=== PATIENT | female | born 1980 | race Caucasian/White ===

== ENCOUNTER 2019-07-16 09:08 | Outpatient (CLI) | payer OTHER, SELFPAY ==
--- NOTE | ~2019-07-16 | MM_ITS ---
EXAMINATION: MM screening ranjit BI w chato HISTORY: Screening mammogram TECHNIQUE: Craniocaudal and mediolateral oblique 3-D tomosynthesis images were obtained and synthetic 2-D images were generated. CAD analysis was submitted and interpreted. COMPARISON: No prior mammogram is available for comparison at this institution. BREAST PARENCHYMAL COMPOSITION: There are scattered areas of fibroglandular density. FINDINGS: RIGHT BREAST: There is no evidence of suspicious mass, calcification, or architectural distortion to suggest malignancy. LEFT BREAST: There is focal asymmetry in the upper outer quadrant of the middle third of the breast. IMPRESSION: 1. Focal asymmetry of the left breast which may represent the patient's baseline however no compariso n is currently available. 2. Comparison with prior mammograms is necessary. BI-RADS Category 0: Incomplete: Needs comparison with prior mammograms. Reviewed, dictated and finalized at location A. IMPRESSION: 1. Focal asymmetry of the left breast which may represent the patient's baselin e however no comparison is currently available. 2. Comparison with prior mammograms is necessary. BI-RADS Category 0: Incomplete: Needs comparison with prior mammograms.
== END 2019-07-16 09:09 | disposition home or self-care (01) ==
LOC: ANHIMG 09:11
PROVIDERS: PCP Physician Assistant; Visit Provider Obstetrics & Gynecology
DX: Z12.31 Encounter for screening mammogram for malignant neoplasm of breast (principal); R92.8 Other abnormal and inconclusive findings on diagnostic imaging of breast
CPT/HCPCS: 77063; 77067

== ENCOUNTER 2021-01-22 14:17 | Outpatient (CLI) | payer OTHER, SELFPAY ==
--- NOTE | ~2021-01-22 | MM_ITS ---
EXAMINATION: MM screening ranjit BI w chato HISTORY: Screening TECHNIQUE: Craniocaudal and mediolateral oblique 3-D tomosynthesis images were obtained and synthetic 2-D images were generated. CAD analysis was submitted and interpreted. COMPARISON: Comparison to multiple prior studies sequentially, with oldest reviewed study dated 01/21. BREAST PARENCHYMAL COMPOSITION: Breast composed of scattered areas of fibroglandular density FINDINGS: There is no evidence of suspicious mass, calcification, or architectural distortion to sugg est malignancy in either breast. There has been no suspicious interval change. IMPRESSION: 1. No mammographic evidence of malignancy. 2. Recommend routine screening mammography in one year. BI-RADS Category 1: Negative Reviewed, dictated and finalized at location A.
== END 2021-01-22 14:18 | disposition home or self-care (01) ==
LOC: ANHIMG 14:20
PROVIDERS: PCP Physician Assistant; Visit Provider Obstetrics & Gynecology
DX: Z12.31 Encounter for screening mammogram for malignant neoplasm of breast (principal)
CPT/HCPCS: 77063; 77067

== ENCOUNTER 2021-02-28 11:42 | Outpatient (CLI) | payer OTHER, SELFPAY ==
--- NOTE | ~2021-02-28 | XR_ITS ---
EXAMINATION:XR cervical spine 4-5V DATE: 02/28/2021 12:26 INDICATION: Bilateral upper extremity pain TECHNIQUE: AP, lateral, and bilateral oblique views of the cervical spine are provided. COMPARISON: None FINDINGS: There are 2 mm of retrolisthesis of C3 on C4. There is straightening of the cervical spine. The odontoid is intact. No fracture is identified. Vertebral body heights and disk spaces are normal . Prevertebral soft tissues are normal. Small degenerative osteophytes project from the anterior endp lates of multiple vertebral bodies. IMPRESSION: 1. Mild cervical spondylosis without acute findings. Reviewed, dictated and finalized at location A.
== END 2021-02-28 11:43 | disposition home or self-care (01) ==
PROVIDERS: PCP Physician Assistant; Visit Provider Physician Assistant
DX: M47.812 Spondylosis without myelopathy or radiculopathy, cervical region (principal)
CPT/HCPCS: 72050

== ENCOUNTER 2021-10-09 12:59 | Outpatient (CLI) | payer OTHER, SELFPAY ==
--- NOTE | ~2021-10-09 | XR_ITS ---
EXAMINATION: XR_CERV2-3V_CR DATE: 10/09/2021 13:28 INDICATION: Prolapsed cervical intervertebral disc. TECHNIQUE: 3 views of cervical spine were obtained. COMPARISON: Cervical spine radiographs 02/28/2021 FINDINGS: There is hypolordosis of cervical spine. There is 2 mm retrolisthesis of C3 on C4. Vertebra l body heights are normal. There is mildly decreased disc height at C5-C6. The facet joints are unrem arkable. No central canal stenosis or prevertebral soft tissue swelling. IMPRESSION: 1. Mild cervical spondylosis. Reviewed, dictated and finalized at location A.
== END 2021-10-09 13:00 | disposition home or self-care (01) ==
LOC: ANHIMG 13:05
PROVIDERS: PCP Physician Assistant; Visit Provider Physician Assistant
DX: M50.20 Other cervical disc displacement, unspecified cervical region (principal); M47.892 Other spondylosis, cervical region
CPT/HCPCS: 72040

== ENCOUNTER 2022-01-23 16:22 | Emergency (ER) | payer OTHER, SELFPAY ==
--- NOTE | ~2022-01-23 | XR_ITS ---
EXAMINATION: XR soft tissue neck DATE: 01/23/2022 20:01 INDICATION: Foreign body sensation. TECHNIQUE: 2 views of the neck soft tissues were obtained. COMPARISON: None. FINDINGS: The adenoids, palatine tonsils, prevertebral soft tissues, epiglottis, and glottis are norm al. No radiopaque foreign body. IMPRESSION: 1. Normal neck soft tissues. Reviewed, dictated and finalized at location A.
[2022-01-23 16:45] VITALS: BP 138/81; PULSE 83; RESP 18; TEMP 36.8; O2SAT 98
--- NOTE | 2022-01-23 18:01 | ED.SKABFB ---
HPI - Skin/Abscess/Foreign Bdy General Chief complaint: Skin/Abscess/Foreign Body Stated complaint: RASH, FACE TINGLY Time Seen by Provider: 01/23/22 17:43 History of Present Illness HPI narrative: Patient is a 41-year-old female here for evaluation of a pruritic rash to her arms and legs over the past 4 days. Patient was seen in urgent care facility and was given a shot of a steroid and also p.o. prednisone to take at home, she finished her dose today but states that the rash has not improved and now she has some tingling sensation in her face. She denies any difficulty breathing or throat tightness. She has not attempted any Benadryl at home. Nobody at home has a similar rash. Related Data Allergies Allergy/AdvReac Type Severity Reaction Status Date / Time No Known Allergies Allergy Verified 01/23/22 19:48 Review of Systems Review of Systems: Gen.: Denies fevers or chills Eyes: Denies eye pain or visual change ENT: Denies congestion Respiratory: Denies shortness of breath or cough CV: Denies chest pain or palpitations GI: Denies abdominal pain nausea, emesis or diarrhea denies burning, urgency, frequency or hematuria Musculoskeletal: Denies back pain or muscle pain Neuro: Denies numbness, tingling, weakness or focal weakness Skin: Reports rash Except as documented, all other systems reviewed and negative Exam Narrative: APPEARANCE: Well appearing, no pain in distress, well-nourished. Head: Normocephalic and atraumatic. EYES: PERRLA/EOMI, conjunctivae clear NOSE: No nasal drainage EARS: External ear normal in appearance THROAT: No tongue swelling. oropharynx is clear. Mucous membranes are moist. NECK: Supple. No adenopathy, no masses. RESPIRATORY: Speaking in full sentences. Airway patent, respirations nonlabored. Clear to auscultation bilaterally, no rales, rhonchi, wheezing. CARDIOVASCULAR: Regular rate and rhythm without murmurs, rubs, or gallops. ABDOMINAL: Normoactive bowel sounds. Soft, nontender, nondistended. No rebound tenderness or guarding. MUSCULOSKELETAL: Extremities are warm and well-perfused. Moves all extremities well. No edema. NEURO: Normal speech. No focal neurologic deficits. SKIN: Patient has pinpoint papules to bilateral upper extremities, coalesced at the webs of the fingers with linear burrows extending up to the forearms. No rash to face. PSYCHIATRIC: Normal affect/mood. Course Vital Signs Vital signs: Vital Signs Temperature 98.3 F 01/23/22 16:45 Pulse Rate 83 01/23/22 16:45 Respiratory Rate 18 01/23/22 16:45 Blood Pressure 138/81 01/23/22 16:45 Pulse Oximetry 98 01/23/22 16:45 Oxygen Delivery Room Air 01/23/22 16:45 Temperature 98.3 F 01/23/22 16:45 Pulse Rate 72 01/23/22 21:12 Respiratory Rate 18 01/23/22 21:12 Blood Pressure 138/81 01/23/22 16:45 Pulse Oximetry 97 01/23/22 21:12 Oxygen Delivery Room Air 01/23/22 16:45 MDM - Skin/Abscess/Foreign Bdy MDM Narrative Medical decision making narrative: 41-year-old female here for evaluation of pruritic rash to her bilateral upper extremities for the past several days. On exam she has pruritic papules to the webs of her fingers in addition to some linear burrows consistent with scabies. Patient be treated with ivermectin and encouraged Benadryl and Pepcid for symptom control. Additionally complaining of some tingling to her tongue but no respiratory distress, no hypoxia or hypotension consistent with anaphylaxis, clear lung sounds throughout. Soft tissue x-ray of the neck shows no foreign body, electrolytes are within normal limits. Patient will be discharged home with EpiPen should she start to develop respiratory symptoms. She voiced understanding and will follow up with her PCP next week. Lab Data Result diagrams: 01/23/22 20:25 Labs: Lab Results 01/23/22 Range/Units 20:25 Sodium 139 (137-145) mmol/L Potassium 4.0 (3.4-5.0) mmol/L Chloride 101 (98-107
[2022-01-23] MEDS: diphenhydrAMINE HCl CAP 25 MG CAPSULE 50 MG PO (18:55)
[2022-01-23] MEDS: predniSONE 20 MG TABLET 40 MG PO (18:56)
[2022-01-23] MEDS: FAMOTIDINE 20 MG TABLET 40 MG PO (18:56)
[2022-01-23 20:52] LABS: Alanine Aminotransferase 38 U/L (6-35); Albumin Level 4.7 g/dL (3.5-5.1); Alkaline Phosphatase 99 U/L (38-126); Anion Gap 13 mmol/L (8-16); Aspartate Amino Transferase 34 U/L (14-36); Bilirubin,Total 0.5 mg/dL (0.2-1.3); Blood Urea Nitrogen 8 mg/dL (7-17); Calcium 8.8 mg/dL (8.4-10.2); Carbon Dioxide 25 mmol/L (22-30); Chloride 101 mmol/L (98-107); Estimated CRCL calculation 93 ml/min; Estimated Glomerular Filt Rate > 60; Glucose 111 mg/dL (65-110); Magnesium 2.1 mg/dL (1.6-2.3); Phosphorus 3.9 mg/dL (2.5-4.5); Sodium 139 mmol/L (137-145)
[2022-01-23 21:12] VITALS: PULSE 72; RESP 18; O2SAT 97
== END 2022-01-23 21:11 | disposition home or self-care (01) ==
PROVIDERS: Physician Assistant; Emergency Provider Emergency Medicine; PCP Physician Assistant
DX: B86 Scabies (principal)
CPT/HCPCS: 36415; 70360; 80053; 83735; 84100; 99283; A9270; J7512

== ENCOUNTER 2023-02-02 14:18 | Outpatient (CLI) | payer OTHER, SELFPAY ==
--- NOTE | ~2023-02-02 | MM_ITS ---
EXAMINATION: MM screening ranjit BI w chato HISTORY: Screening mammogram TECHNIQUE: Craniocaudal and mediolateral oblique 3-D tomosynthesis images were obtained and synthetic 2-D images were generated. CAD analysis was submitted and interpreted. COMPARISON: 01/22/2021, 07/16/2019 bilateral screening mammogram examinations BREAST PARENCHYMAL COMPOSITION: There are scattered areas of fibroglandular density. FINDINGS: There is no evidence of suspicious mass, calcification, or architectural distortion to sugg est malignancy in either breast. There has been no suspicious interval change. IMPRESSION: 1. No mammographic evidence of malignancy. 2. Recommend routine screening mammography in one year. BI-RADS Category 1: Negative Reviewed, dictated and finalized at location A.
== END 2023-02-02 14:19 | disposition home or self-care (01) ==
LOC: ANHIMG 14:22
PROVIDERS: PCP Physician Assistant; Visit Provider Emergency Medicine
DX: Z12.31 Encounter for screening mammogram for malignant neoplasm of breast (principal)
CPT/HCPCS: 77063; 77067

== ENCOUNTER 2024-08-04 15:07 | Outpatient (CLI) | payer OTHER, SELFPAY ==
--- NOTE | ~2024-08-04 | US_ITS ---
EXAMINATION: US venous doppler E DATE: 08/04/2024 15:39 INDICATION: Left arm pain TECHNIQUE: Calvo scale images with and without compression and Doppler images of the left upper extrem ity veins were obtained. COMPARISON: None. FINDINGS: The left internal jugular vein, subclavian vein, axillary vein, brachial veins, basilic vein, cephali c vein, radial vein, and ulnar vein are patent. IMPRESSION: 1. Patent left upper extremity veins. No evidence of deep venous thrombosis. Reviewed, dictated and finalized at location A.
--- OUTSIDE RECORDS SUMMARY | 2024-08-04 16:09 | XMS_ITS | Referral Summary ---
Author Organization [facility] Address [address] [place] [address] Care Team Providers Care Kardex Clerk Name Role Phone Erma Rueda MD Primary Care Provider [phone] Allergies Active Allergy Reactions Criticality Noted Date Comments Morphine Medications baclofen (LIORESAL) 10 mg tablet baclofen 10 mg tablet TAKE 1 TABLET BY MOUTH THREE TIMES DAILY NEEDED 12/22/2016 Active naproxen (NAPROSYN) 500 mg tablet naproxen 500 mg tablet TAKE 1 TABLET BY MOUTH TWICE DAILY 12/22/2016 Active solifenacin (VESIcare) 10 mg tabletIndicatio ns:Urinary frequency Take 1 tablet (10 mg total) by mouth daily 90 tablet 3 12/10/2023 12/10/19 25 Active Active Problems Problem Noted Date Diagnosed Date Urinary incontinence without sensory awareness 0 11/20/2022 Social History Tobacco Use Types Packs/Day Years Used Date Smoking Tobacco: Every Day Cigarettes 0.5 33.2 Started: 1991 Tobacco Cessation:Ready to Q uit: Not Asked; Counseling Given: Not Answered Comments No Sex and Gender Information Value Date Recorded Sex Assigned at Not on file Legal Sex Female 8:07 PM EXECUTIVE PASTRY CHEF Gender Identity Not on file Sexual Orientation Not on file Last Filed Vital Signs Vital Sign Reading Time Taken Comments Blood Pressure 136/75 04/18/2021 10:03 AM EXECUTIVE PASTRY CHEF Pulse 68 04/18/2021 10:03 AM EXECUTIVE PASTRY CHEF Temperature 36.7 C (98 F) 04/18/2021 10:03 AM EXECUTIVE PASTRY CHEF Respiratory Rate 16 04/18/2021 10:03 AM EXECUTIVE PASTRY CHEF Oxygen Saturation 97% 04/18/2021 10:03 AM EXECUTIVE PASTRY CHEF Inhaled Oxygen Concentration - - Weight 95.7 kg (211 lb) 04/18/2021 10:03 AM EXECUTIVE PASTRY CHEF Height 175.3 cm (5' 9 ) 04/18/2021 10:03 AM EXECUTIVE PASTRY CHEF Body Mass Index 31.16 04/18/2021 10:03 AM EXECUTIVE PASTRY CHEF Plan of Treatment Not on file Goals Goal Patient Goal Type Associated Problems Recent Progress Patient-Stated? Author CCM Chronic Pain Care Plan Chronic Care Management No change(04/18 10:04 AM EXECUTIVE PASTRY CHEF) No Emelia Sykes RN Note: Problem: Chronic Pain Goals: 1. Minimize further functional decline 2. Maximize quality of life 3. Control pain Strategies: - Activity/exercise program recommendation - Conservative stepwise pain medicine strategy with multi-disciplinary approach - Recommend healthy lifestyle strategies and compensatory methods as needed Insurance [id number] [place] [address] [facility] Care Teams Kardex Clerk Relationship Specialty Start Date End Date Erma Rueda MD [address] [place] [address] PCP - General Emergency Medicine 07/30/23
--- OUTSIDE RECORDS SUMMARY | 2024-08-04 16:09 | XMS_ITS | Clinical Summary ---
Author Organization [facility] Address Formerly [facility] [place] [address] Care Team Providers Care Steam Conditioner Operator Name Role Phone Unavailable Primary Care Provider Unavailabl e Allergies No known active allergies Medications baclofen 10 MG tablet TK 1 T PO TID PRN 2 7 Active CALCIUM 600+D3 600-800 MG-UNIT tablet TK 1 T PO BID 6 7 Active multivitamin tablet TK 1 T PO QD 4 7 Active naproxen 500 MG tablet TK 1 T PO BID 6 7 Active NICOTINE STEP 1 21 MG/24HR APPLY 1 PATCH EVERY DAY TRANSDERMALLY 2 7 Active omeprazole 40 MG capsule Take 40 mg by mouth. Active Active Problems Problem Noted Date Diagnosed Date Facet arthropathy, cervical 05/18/2017 Cervical radiculopathy 03/18/2017 Social History Tobacco Use Types Packs/Day Years Used Date Smoking Tobacco: Former Cigarettes 0.3 26 1 - 02/15/2017 Smokeless Tobacco: Never Tobacco Cessation:Counseling Given: Yes Comments:pt is in the process of quitting. She is using less every day Alcohol Use Standard Drinks/Week Comments Yes 0 (1 standard drink = 0.6 oz pur e alcohol) socal Comments Unknown Sex and Gender Information Value Date Recorded Sex Assigned at Not on file Legal Sex Female 7:02 PM CDT Gender Identity Not on file Sexual Orientation Not on file Last Filed Vital Signs Vital Sign Reading Time Taken Comments Blood Pressure 116/75 05/18/2017 11:16 AM SHOE STAMPER Pulse 66 05/18/2017 11:16 AM SHOE STAMPER Temperature 36.7 C (98.1 F) 05/18/2017 9:53 AM SHOE STAMPER Respiratory Rate 20 05/18/2017 11:16 AM SHOE STAMPER Oxygen Saturation 100% 05/18/2017 11:00 AM SHOE STAMPER Inhaled Oxygen Concentration - - Weight 78.2 kg (172 lb 6.4 oz) 05/18/2017 9:53 A M SHOE STAMPER Height 172.7 cm (5' 8 ) 05/18/2017 9:53 AM SHOE STAMPER Body Mass Index 26.21 05/18/2017 9:53 AM SHOE STAMPER Plan of Treatment Health Maintenance Due Date Last Done Comments Cervical Cancer Screening Pa p Smear (Age 30 to 64) Every 3 Years 1978 Colorectal Cancer Screening Colonoscopy (10 Years) 1978 Annual Physical 1981 Hepatitis C 1996 DTaP, Tdap and Td Vaccines ( 1 - Tdap) 1997 Hepatitis B Vaccines (1 of 3 - 19+ 3-dose series) 1997 Cervical Cancer Screening Pa p with HPV Testing (Age 30 to 64) Every 5 Years 2008 Cervical Cancer Screening with HPV 2008 Mammogram Screening 2018 COVID-19 Vaccine (2023-2 5 season) 2024 Influenza Adult (#1) 2024 HPV Vaccines Aged Out No longer eligi ble based on patient's age to complete this topic Meningococcal B Vaccine Aged Out No l onger eligible based on patient's age to complete this topic Meningococcal Vaccine Aged Out No rashmi cele eligible based on patient's age to complete this topic Pneumococcal Vaccine: Pediat rics (0 to 5 Years) and At-Risk Patients (6 to 64 Years) Aged Out No longer eligible b ased on patient's age to complete this topic RSV Immunizations Under 20 Months Aged Out No longer eligible based on patient's age to complete this topic Insurance [employer]
--- OUTSIDE RECORDS SUMMARY | 2024-08-04 16:09 | XMS_ITS | Clinical Summary ---
Author Organization [facility] Address [address] [place] [address] Care Team Providers Care Self Contained Behavior Unit Teacher Name Role Phone Chance Morgan WARP COILER-OPERATIONS INTELLIGENCE SUPERINTENDENT Primary Care Provider Source Comments [facility],non-owned Affiliates and Associated Physician Practices is amultiple site organization consisting of ambulatory clinics and hospital sitesin [place], [place], [place] and [place]. This disclosure is being madepursuant to the Care Everywhere program and may not contain all information available regarding this patient. Last updated 18.[employer] Allergies No known active allergies Medications * Be aware that medications may not be up to date on this document. Alwaysverify current medications with the patient. Medication Sig Dispensed Refills Start Date End Date Status cyanocobalamin (VITAMIN B-12) 1 MCG/ML injection Inject subcutaneously every 30 days Active Active Problems Problem Noted Date Diagnosed Date Achalasia Family History Medical History Relation Name Comments Cancer - Prostate Father CAD (Coronary Artery Disease) Maternal Grandfather Diabetes - Type 1 Maternal Grandfather Cancer - Breast Maternal Grandmother Relation Name Status Comments Father Maternal Grandfather Maternal Grandmother Social History Tobacco Use Types Packs/Day Years Used Date Smoking Tobacco: Every Day Cigarettes 0.5 20 Smokeless Tobacco: Never Tobacco Cessation:Ready to Q uit: Yes; Counseling Given: Yes Alcohol Use Standard Drinks/Week Comments Yes 0 (1 standard drink = 0.6 oz pur e alcohol) Rare AUDIT-C Answer Date Recorded Frequency of Alcohol Consumption 2-4 times a thu03/17/2019 Average Number of Drinks 3 or 4 019 Frequency of Binge Drinking Never 11/2018 Sex and Gender Information Value Date Recorded Sex Assigned at Not on file Gender Identity Not on file Sexual Orientation Not on file Last Filed Vital Signs Vital Sign Reading Time Taken Comments Blood Pressure 120/66 02/28/2019 9:58 AM CDT BP rechecked Pulse 70 02/28/2019 9:58 AM CDT Temperature 37.1 C (98.7 F) 02/28/2019 9:58 AM CDT Respiratory Rate 18 02/28/2019 9:58 AM CDT Oxygen Saturation 97% 02/28/2019 9:58 AM CDT Inhaled Oxygen Concentration - - Weight 131.5 kg (290 lb) 03/17/2019 9:53 AM SPECIAL WARFARE COMBATANT CREWMAN Height 172.7 cm (5' 8 ) 03/17/2019 9:53 AM SPECIAL WARFARE COMBATANT CREWMAN Body Mass Index 44.09 03/17/2019 9:53 AM SPECIAL WARFARE COMBATANT CREWMAN Plan of Treatment Health Maintenance Due Date Last Done Comments COLOGUARD (AGES 45-75) - COL ON CA SCREENING 1978 COLON MONITORING 1978 COLONOSCOPY - COLON CA SCREENING 1978 CT COLONOGRAPHY - COLON CA SCREENING 1978 Colorectal Cancer Screening 1978 FIT - COLON CA SCREENING 1978 FLEX SIG - COLON CA SCREENING 1978 LIPID TESTING 1978 MAMMOGRAM 1978 PAP SMEAR 1978 HIV SCREENING 1993 HEPATITIS C SCREENING 12/14/1996 DTAP/TDAP/TD VACCINES (1 - Tdap) 1997 HEPATITIS B VACCINE (1 of 3 - 19+ 3-dose series) 1997 PNEUMOCOCCAL VACCINE (1 of 2 - PCV) 1997 SCREENING FOR DIABETES 02/28/2019 6, 10/31/2015, 10/14/2015 COVID-19 VACCINE ( - 2023-2 5 season) 2024 INFLUENZA VACCINE (#1) 2024 6, 02/19/2015 DEPRESSION SCREENING 05/11/2024 ZOSTER VACCINE (1 of 2) 2028 HIB VACCINE Aged Out No longer eligi ble based on patient's age to complete this topic HPV VACCINE Aged Out No longer eligi ble based on patient's age to complete this topic MENINGOCOCCAL (Group B) VACCINE SHARED DECISION-MAKING Aged Out No longer eligible based on patient's age to complete this topic MENINGOCOCCAL GROUPS A/C/Y/W VACCINE Aged Out No longer eligible b ased on patient's age to complete this topic Goals Goal Patient Goal Type Associated Problems Recent Progress Patient-Stated? Author Safety General On track( 10:37 AM CDT) No Nancy Ortiz, RN Note: Expected end date: Ongoing Interventions: Your nurse will assess your risk for falls/injury each visit Use appropriate and safe transfer methods Medication Management General On track( 10:37 AM CDT) No Nancy Ortiz, MANDIE Note: Expected end date: Ongoing Interventions: Take all medications as prescribed Let your doctor know right away about any changes in your medications Procedures Procedure Name Priority Date/Time Associated Diagnosis Comments BASIC METABOLIC PANEL (CALCIUM TOTAL) Routine 11/03/2015 5:05 AM CDT from Last 3 Months or Most Recently Relevant to Health Maintenance Results * (ABNORMAL) BASIC METABOLIC PANEL (CALCIUM TOTAL) (11/03/2015 5:05 AM CDT) BUN 6(L) 7 - 26 mg/dL [facility] Creatinine 0.6 0.6 - 1.2 mg/dL [facility] Sodium 138 136 - 145 mmol/L [facility] Potassium 3.6 3.5 - 4.5 mmol/L [facility] Chloride 106 98 - 107 mmol/L [facility] CO2 23 22 - 29 mmol/L [facility] Glucose 88 70 - 115 mg/dL [facility] Calcium 7.8(L) 8.4 - 10.2 mg/dL [facility] Anion Gap 13 8 - 18 [facility] BUN/Creatinine Ratio 10 7 - 23 [facility] Osmolality Calculated 283 270 - 300 mOsm/kg [facility] eGFR >60 >60 mL/min/1.7 3 m2 [facility] Blood specimen (specimen) BLOOD SPECIMEN / Unknown 11/03/2015 5:05 AM CDT 11/03/2015 6:03 AM CDT Afua Silver MD LAB - CHEMISTRY ORD ERABLES [facility] [address] [place] [address], [facility] [phone] from Last 3 Months or Most Recently Relevant to Health Maintenance Care Teams Self Contained Behavior Unit Teacher Relationship Specialty Start Date End Date Chance Morgan, RASHAUN-OPERATIONS INTELLIGENCE SUPERINTENDENT PCP - General 09/28/17
--- OUTSIDE RECORDS SUMMARY | 2024-08-04 16:09 | XMS_ITS | Data Portability ---
[facility] Address [address] [place] [address] Assessment Encounter Date Assessment Date Assessment LastModified by Organization Details LastModified Time 12/22/2023 12/22/2023 Has follow up in January and will do women's health visit then. cheslie Not available 12/22/2023 17:40:49 Plan of Treatment Reminders Order Date Submit Date Provider Last Modified By Organization Details Last Modified Time Details Appointments ANY 30 2024 11:00A Kavon Rueda MD Not available Not available Not available Lab vaginal pathogens panel, MARLON+probe , vaginal fluid 2023 024 [facility], [address], [place], [address], 01/29/2024 06:19:46 cytology report, thin prep, smear or scraping, cervical or vaginal 2023 024 [facility], [address], [place], [address], 01/30/2024 15:08:52 influenza virus A + B + SARS-CoV- 2 (COVID19) Ag panel, rapid IA, upper respirato ry specimen 2023 024 [email or web address] In-Office Order, Internal Use Only DO Not Attach Compendium DO Not Attach Compendium, Do Not Delete/merge, [id number] 12/22/2023 17:32:19 lipid panel, serum 2023 024 [facility], [address] [place], [place] [address]om[address], [address], [place], [address], 10/16/2023 08:28:01 CMP, serum or plasma 2023 024 [facility], [address], [address], [place], [address], 10/16/2023 08:28:03 TSH, ultra-sen sitive, serum 2023 024 [facility], [address] [address], [address], [place], [address], 10/16/2023 09:19:05 CBC 2023 024 [facility], [address] [place], [place] [address]om[address], [address], [place], [address], 10/16/2023 08:28:04 albumin/c reatinine , mass ratio, urine 2023 024 [facility], [address] [place], [place] [address]omar [address], [address], [place], [address], 10/16/2023 09:19:04 lipid panel, serum 2022 023 [facility], [address] [place] [address], [address], [place], [address], 12/10/2022 08:29:59 Referral None recorded. Procedures None recorded. Surgeries None recorded. Imaging US, duplex, venous, upper extremity , unilatera l 2024 025 [facility]), [address], [place], [address], 08/01/2024 11:01:02 MAMMO, screening , digital, bilateral 2022 023 [facility], [address], [address], 02/02/2023 18:03:15 Medication Orders Antisepti c Skin Cleanser (chlorhex idine) 4 % liquid 2024 025 [id number], [address], [place], [place], [id number], 07/19/2024 15:58:02 Victoza 3-Tommy 0.6 mg/0.1 mL (18 mg/3 mL) subcutane ous pen injector 2024 025 [facility], [address] [place] [address], [id number], 07/19/2024 18:53:50 Victoza 3-Tommy 0.6 mg/0.1 mL (18 mg/3 mL) subcutane ous pen injector 2024 025 [facility], [address] [place] [address], [id number], 07/19/2024 18:53:50 Paxlovid 300 mg (150 mg x 2)-100 mg tablets in a dose pack 2023 025 [facility][id number], [address] , [place], [place], [id number], 07/19/2024 14:56:35 doxycycli ne hyclate 100 mg capsule 2023 024 [facility][id number], [address], [place], [place], [id number], 12/22/2023 16:36:44 Patient TargetsNo targets recorded. Patient Instructions Encounter Date Encounter Id Patient Instructions Last Modified By Organization Details Last Modified Time 10/14/2023 [id number] dash diet: care instructions [facility] Not available 10/14/2023 16:44:17 01/27/2024 [id number] A healthy lifestyle: care instructions [email or web address] Not available 01/27/2024 10:16:13 learning about cervical cancer screening [email or web address] Not available 01/27/2024 10:14:26 Reason for Referral None Reported. Results Created Date Observation Date Name Description Value Unit Range Abnormal Flag Note LastModifiedBy Organization Detail LastModifiedTime 10/21/1910/21/2022 HCV ANTIB DANNY RFX TO QUANT PCR HCV Ab Non Reacti ve nonrea ctive Not Available [facility] ([facility]) [address] [facility], [place], [address], 10/22/2022 06:16:46 10/21/1910/21/2022 HSV 1 AND 2-SPE C AB, IGG W/RFX hsv 1 IgG, type spec 36.70 index 0.00-0 .90 above high normal Negat haley <0.91 Equiv ocal 0.91 - 1.09 Posit haley >1.09 Note: Negat haley indic ates no antib odies detec duarte to HSV-1 . Equiv ocal may sugge st early infec tion. If clini carla appro priat e, retes t at later date. Posit haley indic ates antib odies detec duarte to HSV-1 . Not Available [facility] ([facility]) [address] [facility], [place], [address], 10/22/2022 06:16:47 10/21/1910/21/2022 HSV 1 AND 2-SPE C AB, IGG W/RFX hsv 2 IgG, type spec <0.91 index 0.00-0 .90 Negat haley <0.91 Equiv ocal 0.91 - 1.09 Posit haley >1.09 Note: Negat haley indic ates no HSV-2 antib odies detec duarte. Posit haley indic ates HSV-2 antib odies detec duarte. Equiv ocal and low posit haley HSV-2 scree ns (Inde x 0.91- 5.00) may be false posit haley and are refle xed to suppl salima umanzor in accor dance with CDC guide lines . Not Available [facility] ([facility]) [address] [facility], [place], [address], 10/22/2022 06:16:47 10/21/1910/21/2022 CT, NG, TRICH VAG BY MARLON chlamydia by MARLON Negati ve negati ve Not Available [facility] ([facility]) [address] [facility], [place], [address], 10/22/2022 06:16:48 10/21/1910/21/2022 CT, NG, TRICH VAG BY MARLON gonococcus by MARLON Negati ve negati ve Not Available [facility] ([facility]) [address] [facility], [place], [address], 10/22/2022 06:16:48 10/21/1910/21/2022 CT, NG, TRICH VAG BY MARLON trich vag by MARLON Negati ve negati ve Not Available [facility] ([facility]) [address] [facility], [place], [address], 10/22/2022 06:16:48 10/21/1910/21/2022 HBSAG SCREE N HBsAg screen Negati ve negati ve Not Available [facility] ([facility]) [address] [facility], [place], [address], 10/22/2022 06:16:48 10/21/1910/21/2022 RPR, RFX QN RPR/C ONFIR M TP RPR Non Reacti ve nonrea ctive Not Available [facility] ([facility]) [address] [place], [address], 10/22/2022 06:16:49 10/21/1910/21/2022 INTER PRETA TION: interpretati on: Commen t Not infec duarte with HCV unles s early or acute infec tion is suspe cted (whic h may be delay ed in an immun ocomp romis ed indiv idual ), or other evide nce exist s to indic ate HCV infec tion. Not Available [facility] ([facility]) [address] [place], [address], 10/22/2022 06:16:46 12/10/19 23 12/10/2022 LIPID PANEL cholesterol, total 252 mg/dL 100-19 9 above high normal Not Available [facility] ([facility]) [address] [place], [address], 12/10/2022 08:29:59 12/10/19 23 12/10/2022 LIPID PANEL triglyceride s 124 mg/dL 0-149 Not Available [facility] ([facility]) [address] [place], [address], 12/10/2022 08:29:59 12/10/19 23 12/10/2022 LIPID PANEL HDL cholesterol 50 mg/dL >39 Not Available [facility] ([facility]) [address] [place], [address], 12/10/2022 08:29:59 12/10/19 23 12/10/2022 LIPID PANEL VLDL cholesterol alexsandra 22 mg/dL 5-40 Not Available [facility] ([facility]) [address] [place], [address], 12/10/2022 08:29:59 12/10/19 23 12/10/2022 LIPID PANEL LDL chol calc ([facility]) 180 mg/dL 0-99 above high normal Not Available [facility] ([facility]) [address] [place], [address], 12/10/2022 08:29:59 10/15/19 24 10/16/2023 LIPID PANEL cholesterol, total 227 mg/dL 100-19 9 above high normal Not Available [facility] ([facility]) [address] [place], [address], 10/16/2023 08:28:01 10/15/19 24 10/16/2023 LIPID PANEL triglyceride s 159 mg/dL 0-149 above high normal Not Available [facility] ([facility]) [address] [facility] [place], [address], 10/16/2023 08:28:01 10/15/19 24 10/16/2023 LIPID PANEL HDL cholesterol 51 mg/dL >39 Not Available [facility] ([facility]) [address] [place], [address], 10/16/2023 08:28:01 10/15/19 24 10/16/2023 LIPID PANEL VLDL cholesterol alexsandra 29 mg/dL 5-40 Not Available [facility] ([facility]) [address] [place], [address], 10/16/2023 08:28:01 10/15/19 24 10/16/2023 LIPID PANEL LDL chol calc ([facility]) 147 mg/dL 0-99 above high normal Not Available [facility] ([facility]) [address] [place], [address], 10/16/2023 08:28:01 10/15/19 24 10/16/2023 COMP. METAB OLIC PANEL (14) glucose 94 mg/dL 70-99 Not Available [facility] ([facility]) [address] [place], [address], 10/16/2023 08:28:03 10/15/19 24 10/16/2023 COMP. METAB OLIC PANEL (14) BUN 12 mg/dL 6-24 Not Available [facility] ([facility]) [address] [place], [address], 10/16/2023 08:28:03 10/15/19 24 10/16/2023 COMP. METAB OLIC PANEL (14) creatinine 0.79 mg/dL 0.57-1 .00 Not Available [facility] ([facility]) [address] [place], [address], 10/16/2023 08:28:03 10/15/19 24 10/16/2023 COMP. METAB OLIC PANEL (14) eGFR 95 mL/mi n/1.7 3 >59 Not Available [facility] ([facility]) [address] [facility], [place], [address], 10/16/2023 08:28:03 10/15/19 24 10/16/2023 COMP. METAB OLIC PANEL (14) BUN/creatini ne ratio 15 9-23 Not Available [facility] ([facility]) [address] [facility], [place], [address], 10/16/2023 08:28:03 10/15/19 24 10/16/2023 COMP. METAB OLIC PANEL (14) sodium 138 mmol/ L 134-14 4 Not Available [facility] ([facility]) [address] [facility], [place], [address], 10/16/2023 08:28:03 10/15/19 24 10/16/2023 COMP. METAB OLIC PANEL (14) potassium 4.4 mmol/ L 3.5-5. 2 Not Available [facility] ([facility]) [address] [facility], [place], [address], 10/16/2023 08:28:03 10/15/19 24 10/16/2023 COMP. METAB OLIC PANEL (14) chloride 103 mmol/ L 96-106 Not Available [facility] ([facility]) [address] [facility], [place], [address], 10/16/2023 08:28:03 10/15/19 24 10/16/2023 COMP. METAB OLIC PANEL (14) carbon dioxide, total 20 mmol/ L 20-29 Not Available [facility] ([facility]) [address] [facility], [place], [address], 10/16/2023 08:28:03 10/15/19 24 10/16/2023 COMP. METAB OLIC PANEL (14) calcium 9.0 mg/dL 8.7-10 .2 Not Available [facility] ([facility]) [address], [place], [address], 10/16/2023 08:28:03 10/15/19 24 10/16/2023 COMP. METAB OLIC PANEL (14) protein, total 6.8 g/dL 6.0-8. 5 Not Available [facility] ([facility]) [address], [place], [address], 10/16/2023 08:28:03 10/15/19 24 10/16/2023 COMP. METAB OLIC PANEL (14) albumin 4.1 g/dL 3.9-4. 9 Not Available [facility] ([facility]) [address], [place], [address], 10/16/2023 08:28:03 10/15/19 24 10/16/2023 COMP. METAB OLIC PANEL (14) globulin, total 2.7 g/dL 1.5-4. 5 Not Available [facility] ([facility]) [address] [place], [address], 10/16/2023 08:28:03 10/15/19 24 10/16/2023 COMP. METAB OLIC PANEL (14) A/G ratio 1.5 1.2-2. 2 Not Available [facility] ([facility]) [address] [place], [address], 10/16/2023 08:28:03 10/15/19 24 10/16/2023 COMP. METAB OLIC PANEL (14) bilirubin, total <0.2 mg/dL 0.0-1. 2 Not Available [facility] ([facility]) [address] [place], [address], 10/16/2023 08:28:03 10/15/19 24 10/16/2023 COMP. METAB OLIC PANEL (14) alkaline phosphatase 102 IU/L 44-121 Not Available [facility] ([facility]) [address] [facility], [place], [address], 10/16/2023 08:28:03 10/15/19 24 10/16/2023 COMP. METAB OLIC PANEL (14) AST (SGOT) 20 IU/L 0-40 Not Available [facility] ([facility]) [address] [facility], [place], [address], 10/16/2023 08:28:03 10/15/19 24 10/16/2023 COMP. METAB OLIC PANEL (14) ALT (SGPT) 28 IU/L 0-32 Not Available [facility] ([facility]) [address] [facility], [place], [address], 10/16/2023 08:28:03 10/15/19 24 10/16/2023 CBC, PLATE LET, NO DIFFE RENTI AL WBC 8.8 x10e3 /uL 3.4-10 .8 Not Available [facility] ([facility]) [address] [facility], [place], [address], 10/16/2023 08:28:04 10/15/19 24 10/16/2023 CBC, PLATE LET, NO DIFFE RENTI AL RBC 4.34 x10e6 /uL 3.77-5 .28 Not Available [facility] ([facility]) [address] [facility], [place], [address], 10/16/2023 08:28:04 10/15/19 24 10/16/2023 CBC, PLATE LET, NO DIFFE RENTI AL hemoglobin 12.9 g/dL 11.1-1 5.9 Not Available [facility] ([facility]) [address] [facility], [place], [address], 10/16/2023 08:28:04 10/15/19 24 10/16/2023 CBC, PLATE LET, NO DIFFE RENTI AL hematocrit 39.1 % 34.0-4 6.6 Not Available [facility] ([facility]) [address] [facility], [place], [address], 10/16/2023 08:28:04 10/15/19 24 10/16/2023 CBC, PLATE LET, NO DIFFE RENTI AL MCV 90 fL 79-97 Not Available [facility] ([facility]) [address] [facility], [place], [address], 10/16/2023 08:28:04 10/15/19 24 10/16/2023 CBC, PLATE LET, NO DIFFE RENTI AL MCH 29.7 pg 26.6-3 3.0 Not Available [facility] ([facility]) [address] [facility], [place], [address], 10/16/2023 08:28:04 10/15/19 24 10/16/2023 CBC, PLATE LET, NO DIFFE RENTI AL MCHC 33.0 g/dL 31.5-3 5.7 Not Available [facility] ([facility]) [address] [facility], [place], [address], 10/16/2023 08:28:04 10/15/19 24 10/16/2023 CBC, PLATE LET, NO DIFFE RENTI AL RDW 13.3 % 11.7-1 5.4 Not Available [facility] ([facility]) [address] [place], [address], 10/16/2023 08:28:04 10/15/19 24 10/16/2023 CBC, PLATE LET, NO DIFFE RENTI AL platelets 239 x10e3 /uL 150-45 0 Not Available [facility] ([facility]) [address] [place], [address], 10/16/2023 08:28:04 10/15/19 24 10/16/2023 ALBUM IN/CR EATIN INE RATIO ,URIN E creatinine, urine 88.9 mg/dL notest ab. Not Available [facility] ([facility]) [address] [place], [address], 10/16/2023 09:19:04 10/15/19 24 10/16/2023 ALBUM IN/CR EATIN INE RATIO ,URIN E albumin, urine <3.0 ug/mL notest ab. Not Available [facility] ([facility]) [address] [facility], [place], [address], 10/16/2023 09:19:04 10/15/19 24 10/16/2023 ALBUM IN/CR EATIN INE RATIO ,URIN E alb/creat ratio <3 Ame l: 0 - 29 Moder ately incre ased: 30 - 300 Sever reid incre ased: >300 Not Available [facility] ([facility]) [address] [facility], [place], [address], 10/16/2023 09:19:04 10/15/19 24 10/16/2023 TSH RFX ON ABNOR MAL TO FREE T4 TSH 1.440 uIU/m L 0.450- 4.500 Not Available [facility] ([facility]) [address] [facility], [place], [address], 10/16/2023 09:19:05 12/22/19 24 12/22/2023 influ chin virus A + B + SARS- CoV-2 (COVI D19) Ag panel , rapid IA, upper respi rator y speci men Flu A negati ve Not Available In-Office Order Internal Use Only DO Not Attach Compendium DO Not Attach Compendium, Do Not Delete/merge, [id number] 12/22/2023 17:05:14 12/22/19 24 12/22/2023 influ chin virus A + B + SARS- CoV-2 (COVI D19) Ag panel , rapid IA, upper respi rator y speci men Flu B negati ve Not Available In-Office Order Internal Use Only DO Not Attach Compendium DO Not Attach Compendium, Do Not Delete/merge, [id number] 12/22/2023 17:05:14 12/22/19 24 12/22/2023 influ chin virus A + B + SARS- CoV-2 (COVI D19) Ag panel , rapid IA, upper respi rator y speci men Rapid SARS CoV 2 Ag, QL IA, respiratory specimen positi ve Not Available In-Office Order Internal Use Only DO Not Attach Compendium DO Not Attach Compendium, Do Not Delete/merge, [id number] 12/22/2023 17:05:14 01/27/20 24 01/28/2024 NUSWA B VAGIN ITIS PLUS (VG+) atopobium vaginae LOW - 0 score Not Available [facility] ([facility]) [address] [facility], [place], [address], 01/29/2024 06:19:46 01/27/20 24 01/28/2024 NUA B VAGIN ITIS PLUS (VG+) bvab 2 LOW - 0 score Not Available [facility] ([facility]) [address] [facility], [place], [address], 01/29/2024 06:19:46 01/27/20 24 01/28/2024 NUA B VAGIN ITIS PLUS (VG+) megasphaera 1 LOW - 0 score Calcu late total score by pato gonzalez the 3 indiv idual bacte rial vagin osis (BV) marke r score s toget her. Total score is inter prete d as follo ws: Total score 0-1: Indic ates the absen ce of BV. Total score 2: Indet ermin ate for BV. Addit ional clini alexsandra data shoul d be evalu ated to estab fina a diagn osis. Total score 3-6: Indic ates the prese nce of BV. Not Available [facility] ([facility]) [address] [facility], [place], [address], 01/29/2024 06:19:46 01/27/20 24 01/28/2024 NUSWA B VAGIN ITIS PLUS (VG+) yoav albicans, MARLON NEGATI VE negati ve Not Available [facility] ([facility]) [address] [place], [address], 01/29/2024 06:19:46 01/27/20 24 01/28/2024 NUSWA B VAGIN ITIS PLUS (VG+) yoav glabrata, MARLON NEGATI VE negati ve Not Available [facility] ([facility]) [address] [place], [address], 01/29/2024 06:19:46 01/27/20 24 01/29/2024 NUSWA B VAGIN ITIS PLUS (VG+) trich vag by MARLON NEGATI VE negati ve Not Available [facility] ([facility]) [address] [place], [address], 01/29/2024 06:19:46 01/27/20 24 01/29/2024 NUA B VAGIN ITIS PLUS (VG+) chlamydia trachomatis, MARLON NEGATI VE negati ve Not Available [facility] ([facility]) [address] [place], [address], 01/29/2024 06:19:46 01/27/20 24 01/29/2024 NUSWA B VAGIN ITIS PLUS (VG+) neisseria gonorrhoeae, MARLON NEGATI VE negati ve Not Available [facility] ([facility]) [address] [place], [address], 01/29/2024 06:19:46 01/27/20 24 01/28/2024 IGP, APTIM A HPV, RFX 16/18 ,45 HPV aptima NEGATI VE negati ve This nucle ic acid ampli ficat ion test detec ts fourt een high- risk HPV types (16,1 8,31, 33,35 ,39,4 5,51, 52,56 ,58,5 9,66, 68) witho ut diffe renti ation . Not Available [facility] ([facility]) [address] [place], [address], 01/30/2024 15:08:52 01/27/20 24 01/30/2024 IGP, APTIM A HPV, RFX 16/18 ,45 diagnosis: IGNACIO CURTIS IVE FOR INTRA EPITH ELIAL LESIO N OR STEVIE PARADA . Not Available [facility] ([facility]) [address] [facility], [place], [address], 01/30/2024 15:08:52 01/27/20 24 01/30/2024 IGP, APTIM A HPV, RFX 16/18 ,45 specimen adequacy: IGNACIO Cronin Satis facto ry for evalu ation . No endoc ervic al compo nent is ident ified . Not Available [facility] ([facility]) [address] [facility], [place], [address], 01/30/2024 15:08:52 01/27/20 24 01/30/2024 IGP, APTIM A HPV, RFX 16/18 ,45 clinician provided ICD10: IGNACIO Cronin Z01.4 19 Not Available [facility] ([facility]) [address] [facility], [place], [address], 01/30/2024 15:08:52 01/27/20 24 01/30/2024 IGP, APTIM A HPV, RFX 16/18 ,45 performed by: IGNACIO Aly ams, Cytot geneva cronin (ASCP ) Not Available [facility] ([facility]) [address] [facility], [place], [address], 01/30/2024 15:08:52 01/27/20 24 01/30/2024 IGP, APTIM A HPV, RFX 16/18 ,45 . . Not Available [facility] ([facility]) [address] [place], [address], 01/30/2024 15:08:52 01/27/20 24 01/30/2024 IGP, APTIM A HPV, RFX 16/18 ,45 note: IGNACIO Cronin The Pap smear is a scree rosita test dieter duncan to aid in the detec tion of philip ligna nt and malig nant condi tions of the uteri ne cervi x. It is not a diagn ostic proce dure and shoul d not be used as the sole means of detec ting cervi alexsandra cance r. Both false -posi tive and false -nega tive repor ts do occur . Not Available [facility] ([facility]) [address] [facility], [place], [address], 01/30/2024 15:08:52 01/27/20 24 01/30/2024 IGP, APTIM A HPV, RFX 16/18 ,45 test methodology: COMMEN T This liqui d based ThinP rep(R ) pap test was katie ducnan with the use of an image guide yanick garza Not Available [facility] ([facility]) [address] [facility], [place], [address], 01/30/2024 15:08:52 01/27/20 24 01/30/2024 IGP, APTIM A HPV, RFX 16/18 ,45 HPV genotype reflex COMMEN T Crite julienne not met, HPV Genot ype not perfo rmed. Not Available [facility] ([facility]) [address] [facility], [place], [address], 01/30/2024 15:08:52 02/03/20 23 02/02/2023 MAMMO , scree rosita, digit al, bilat eral No observ ation record ed. [facility] [address], [place], [address], 02/03/2023 17:00:51 Result Notes None recorded. Problems Name Problem SNOMED Code Status Onset Date Resolution Date Notes Provider Name and Address Organization Details Recorded Time Acute bronchitis 72423346 Active 2017 Kvng Morgan PA-C Attn: Wil g,[address] [facility], [place], [address], [facility] 8 14:26:55 Palpitatio ns 61211315 Active 2017 Kvng Morgan PA-C Attn: Wil gonzalez,[address] [facility], [place], [address], [place] [facility] 8 13:30:07 Achalasia 33885182 Active 2017 Kvng Morgan PA-C Attn: Wil gonzalez,[address] [facility], [place], [address], [place] [facility] 8 22:44:20 Bradycardi a 59652454 Active 2017 Kvng Morgan PA-C Attn: Accountdamaris g,[address] [facility], [place], [address], [place] [facility] 8 14:03:43 Supraventr icular tachycardi a 7517396 Active 2017 Kvng Morgan PA-C Attn: Wil gonzalez,[address] [place], [address], [place] [facility] 8 17:05:54 Injury of right ankle 330359198113 [address] Active 2018 Kvng Morgan PA-C Attn: Wil gonzalez,[address] [place], [address], [place] [facility] 9 11:57:18 Acute otitis media 0927427 Active 2018 Kvng Morgan PA-C Attn: Wil gonzalez,[address] [facility], [place], [address], [place] [facility] 9 11:59:50 Vulvovagin itis 17013327 Active 2018 Kvng Morgan PA-C Attn: Wil g,[address] [facility], [place], [address], [place] - [facility] 9 12:10:59 Dysuria 72066870 Active 2020 Kvng Morgan PA-C Attn: Accountdamaris g,[address] [facility], [place], [address], [place] [facility] 1 17:04:46 Urinary incontinen ce 608432378 Active 2020 Kvng Morgan PA-C Attn: Accountin g,[address] [facility], [place], [address], [place] [facility] 1 10:42:13 Acute contact dermatitis 070008294 Active 2020 [facility] Kvng Morgan PA-C Attn: Accountin g,[address] [facility], [place], [address], [place] [facility] 1 16:21:03 Serum vitamin B12 borderline low 840630635 Active 2020 Kvng Morgan PA-C Attn: Accountin g,[address] [facility], [place], [address], [place] [facility] 1 17:39:10 Labyrinthi tis 45284481 Active 2021 Kvng Morgan PA-C Attn: Accountin g,[address] [facility], [place], [address], [place] [facility] 2 15:30:14 Dizziness 518375907 Active Kvng Morgan PA-C Attn: Accountin g,[address] [facility], [place], [address], [place] [facility] 5 15:23:35 Disorder of vitamin B12 567580069 Active Pepper Schuster MA null, [place] - [facility] 6 14:58:15 Hyperlipid emia 40776591 Active Kvng Morgan PA-C Attn: Accountin g,[address] [facility], [place], [address], [place] [facility] 6 16:38:38 Vitamin D deficiency 09550949 Active Kvng Morgan PA-C Attn: Accountin g,[address] [facility], [place], [address], [place] [facility] 6 16:38:38 Acute sinusitis 46243325 Active Kvng Morgan PA-C Attn: Accountin g,[address] [facility], [place], [address], [place] [facility] 5 12:42:39 Nausea and vomiting 38000032 Active Kvng Morgan PA-C Attn: Accountdamaris g,[address] [facility], [place], [address], [place] [facility] 6 11:56:00 Tobacco user 038875196 Active Kvng Morgan PA-C Attn: Accountin g,[address] [facility], [place], [address], [place] [facility] 6 11:56:00 Vitamin B12 deficiency anemia due to malabsorpt ion with proteinuri a 121226416 Active Susannah Delcid MA [facility], [place] - [facility] 6 11:22:53 Migraine 87176043 Active Kvng Morgan PA-C Attn: Accountdamaris g,[address] [place], [address], [place] [facility] 6 13:48:47 Laceration - injury 751248629 Active Kvng Morgan PA-C Attn: Wil gonzalez,[address] [place], [address], [place] [facility] 6 16:33:08 Strain of neck muscle 711025296 Active 2015 Kvng Morgan PA-C Attn: Wil gonzalez,[address] [place], [address], [place] [facility] 6 13:13:05 Administra tion of influenza vaccine Active 2015 Kvng Mrogan PA-C Attn: Wil g,[address] [place], [address], [place] [facility] 6 13:13:32 Injury of right knee [id number] 76859 Active 2016 Kvng Morgan PA-C Attn: Accountdamarsi gonzalez,[address] [place], [address], [place] [facility] 7 15:26:02 Acute pharyngiti s 851973572 Active 2016 Kvng Morgan PA-C Attn: Wil gonzalez,[address] [facility], [place], [address], [place] - [facility] 7 15:27:22 Prolapsed cervical interverte bral disc 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 Active 2016 Kvng Morgan PA-C Attn: Accountdamaris g,[address] [facility], [place], [address], [place] - [facility] 7 14:22:06 Requires tetanus and diphtheria vaccinatio n 976579420 Active 2016 Kvng Morgan PA-C Attn: Wil g,[address] [facility], [place], [address], [facility] - [facility] 7 15:23:57 Physical examinatio n 7482366 Active 2016 Kvng Morgan PA-C Attn: Accountdamaris g,[address] [facility], [place], [address], [place] - [facility] 7 17:13:30 Bacterial vaginosis 050047004 Active 2016 Raphael Rod christi, [place] - [facility] 7 09:48:10 Problem Notes None recorded. Procedures Surgical History Date Name Laterality Status Provider Name and Address Organization Details Recorded Time 4 Date of Last Pap Smear completed Shivani Lundberg MA [facility] 01/27/2024 10:02:15 1 Date of Last Mammogram completed Bree Monzon MA [facility] 11/05/2022 14:01:52 4 Caesarean Section completed Pepper Mohamud MA [facility] 11/25/2018 16:08:49 4 Tubal Ligation completed Pepper Mohamud MA [facility] 11/25/2018 16:08:32 9 Caesarean Section completed Pepper Mohamud MA [facility] 11/25/2018 16:08:44 repair of esophagus completed Bree Monzon [place] - [facility] 11/05/2022 14:03:00 Imaging Results Imaging Date Name Status LastModified by Organiz ation Details LastModified Time 02/02/2023 MAMMO, screening, digital, bilateral completed [facility] [address], [place], [address], 02/03/2023 17:00:51 Procedure Notes None recorded. Medical Equipment None Reported. Allergies No known drug allergies Medications Name Sig Start Date Stop Date Status Note LastModified by Organization Details LastModified Time Prescriptio n - Change active Not Available Not Available N ot Available vitamin d3 2000unit capsules TAKE 1 CAPSULE BY MOUTH EVERY DAY IN THE MORNING FOR 30 DAYS 06/17 completed Not Available Not Available Not Available multivitami n tablet Take 1 tablet every day by oral route. 06/17 completed Not Available Not Available Not Available amoxicillin 500 mg capsule TAKE 1 TABET BY MOUTH EVERY 8 HOURS UNTIL GONE 09/04 completed Not Available Not Available Not Available ivermectin 3 mg tablet TAKE 5 TABLETS BY MOUTH NOW AND REPEAT IN 9 DAYS 06/17 completed Not Available Not Available Not Available promethazin e-DM 6.25 mg-15 mg/5 mL oral syrup TAKE 5 ML BY MOUTH EVERY 6 HOURS FOR 10 DAYS NEEDED 06/17 completed Not Available Not Available Not Available prednisone 10 mg tablet 2 tab po twice daily fore 2 days ; 1 tab twice daily for 5 days ; 0.5 tab twice ddaily for 2 days ; 0.5 tab for 1 day . tke 2nd dose every day at noon 06/17 completed Not Available Not Available Not Available doxycycline hyclate 100 mg capsule TAKE 1 CAPSULE BY MOUTH TWICE DAILY WITH FOOD 12/21 completed Not Available Not Available Not Available azithromyci n 250 mg tablet TK 2 TS PO ON DAY 1, THEN TK 1 T PO D FOR 4 DAYS 10/04 completed Not Available Not Available Not Available ibuprofen 800 mg tablet Take by oral route. 12/21 completed Not Available Not Available Not Available fluconazole 150 mg tablet TK 1 T PO Q 72 H FOR 9 DAYS 09/04 completed Not Available Not Available Not Available sumatriptan 100 mg tablet TAKE 1 TABLET BY MOUTH AT ONSET OF HEADACHE MAY REPEAT IN 2 HOURS 10/25 completed Not Available Not Available Not Available hydrocodone 5 mg-acetamin ophen 325 mg tablet 10/25 completed Not Available Not Available Not Available promethazin e 6.25 mg/5 mL oral syrup Take 20 mL every day by oral route as directed for 30 days. 09/04 completed Not Available Not Available Not Available sucralfate 1 gram tablet 10/25 completed Not Available Not Available Not Available ondansetron HCl 4 mg tablet 10/25 completed Not Available Not Available Not Available lovastatin 40 mg tablet Take 1 tablet every day by oral route in the evening for 30 days. 10/25 completed Not Available Not Available Not Available prednisone 5 mg tablet TAKE DIRECTED WITH FOOD 06/17 completed Not Available Not Available Not Available Doc-Q-Lace 100 mg capsule 10/25 completed Not Available Not Available Not Available cyanocobala min (vit B-12) 1,000 mcg tablet TAKE 1 TABLET BY MOUTH TWICE DAILY WITH MEALS 06/17 completed Not Available Not Available Not Available meclizine 12.5 mg tablet TAKE 1 TABLET BY MOUTH THREE TIMES DAILY NEEDED 06/17 completed Not Available Not Available Not Available metronidazo le 500 mg tablet Take 1 tablet twice a day by oral route for 10 days. 10/25 completed Not Available Not Available Not Available prochlorper azine maleate 10 mg tablet Take 1 tablet twice a day by oral route as needed for 4 days. 10/25 completed Not Available Not Available Not Available ciprofloxac in 500 mg tablet TAKE 1 TABLET BY MOUTH EVERY 12 HOURS FOR 10 DAYS 06/17 completed Not Available Not Available Not Available sulfamethox azole 800 mg-trimetho prim 160 mg tablet TAKE 1 TABLET BY MOUTH TWICE DAILY FOR 10 DAYS 06/17 completed Not Available Not Available Not Available omeprazole 40 mg capsule,del ayed release 10/25 completed Not Available Not Available Not Available tramadol 50 mg tablet 10/25 completed Not Available Not Available Not Available triamcinolo ne acetonide 0.1 % topical cream APPLY TOPICALLY TO RASH TWICE DAILY FOR 7 DAYS 08/13 /2024 completed Not Available Not Available Not Available amoxicillin 500 mg tablet 09/04 completed Not Available Not Available Not Available acyclovir 800 mg tablet TAKE 1 TABLET BY MOUTH EVERY DAY 12/21 completed Not Available Not Available Not Available Depo-Medrol 80 mg/mL suspension for injection Take 1 mL by injection route. 10/25 completed Not Available Not Available Not Available meloxicam 7.5 mg tablet 10/25 completed Not Available Not Available Not Available prochlorper azine 25 mg rectal suppository Insert 1 supposito ry twice a day by rectal route for 10 days. 10/25 completed Not Available Not Available Not Available baclofen 10 mg tablet TAKE 1 TABLET BY MOUTH THREE TIMES DAILY NEEDED 06/17 completed Not Available Not Available Not Available cyanocobala min (vit B-12) 1,000 mcg/mL injection solution Inject 1000 microgram s every month by subcutane ous route. 09/04 completed Not Available Not Available Not Available ranitidine 150 mg tablet 10/25 completed Not Available Not Available Not Available nicotine 21 mg/24 hr daily transdermal patch UNWRAP AND APPLY 1 PATCH TO SKIN EVERY DAY 06/17 completed Not Available Not Available Not Available epinephrine 0.3 mg/0.3 mL injection, auto-inject or 11/05 completed Not Available Not Available Not Available ibuprofen 600 mg tablet TK 1 T PO Q 6 H PRN P 09/04 completed Not Available Not Available Not Available levofloxaci n 500 mg tablet Take 1 tablet every 24 hours by oral route for 10 days. 10/25 completed Not Available Not Available Not Available albuterol sulfate HFA 90 mcg/actuati on aerosol inhaler INHALE 2 PUFFS BY MOUTH THREE TIMES DAILY NEEDED active Not Available Not Available No t Available ondansetron 4 mg disintegrat ing tablet 10/25 completed Not Available Not Available Not Available doxycycline hyclate 100 mg tablet TAKE 1 TABLET BY MOUTH TWICE DAILY AFTER MEALS FOR 10 DAYS 11/05 completed Not Available Not Available Not Available naproxen 500 mg tablet TAKE 1 TABLET BY MOUTH TWICE DAILY 06/17 completed Not Available Not Available Not Available amoxicillin 875 mg-potassiu m clavulanate 125 mg tablet TK 1 T PO Q 12 H FOR 10 DAYS 09/04 completed Not Available Not Available Not Available oxycodone 5 mg tablet 10/25 completed Not Available Not Available Not Available Benadryl Allergy 25 mg tablet Take 1 tablet as needed by oral route at bedtime for 30 days. 06/17 completed Not Available Not Available Not Available rosuvastati n 5 mg tablet TAKE 1 TABLET BY MOUTH EVERY DAY IN THE MORNING 06/17 completed Not Available Not Available Not Available rosuvastati n 10 mg tablet Take 1 tablet every day by oral route in the morning for 30 days. 06/17 completed Not Available Not Available Not Available bupropion HCl XL 300 mg 24 hr tablet, extended release TAKE 1 TABLET BY MOUTH EVERY DAY IN THE MORNING 06/17 completed Not Available Not Available Not Available bupropion HCl XL 150 mg 24 hr tablet, extended release TAKE 1 TABLET BY MOUTH EVERY MORNING FOR 3 DAYS 06/17 completed Not Available Not Available Not Available solifenacin 5 mg tablet 10/13 completed Not Available Not Available Not Available solifenacin 10 mg tablet active Not Available Not Available Not Available calcium 600 mg (as carbonate)- vitamin D3 10 mcg (400 unit) tablet TAKE 1 TABLET BY MOUTH TWICE DAILY 06/17 completed Not Available Not Available Not Available cholecalcif vika (vitamin D3) 1,250 mcg (50,000 unit) capsule TAKE 1 CAPSULE BY MOUTH EVERY WEEK 11/05 completed Not Available Not Available Not Available diclofenac 1 % topical gel APPLY 2 GRAMS EXTERNALL Y TO THE AFFECTED AREA FOUR TIMES DAILY 09/04 completed Not Available Not Available Not Available cholecalcif vika (vitamin D3) 50 mcg (2,000 unit) capsule TAKE ONE CAPSULE BY MOUTH DAILY IN THE MORNING 06/17 completed Not Available Not Available Not Available liraglutide 0.6 mg/0.1 mL (18 mg/3 mL) subcutaneou s pen injector Inject by subcutane ous route for 30 days. active Not Available Not Available No t Available Antiseptic Skin Cleanser (chlorhexid ine) 4 % liquid apply from neck down in shower and leave on for several minutes, then rinse off for one week 2024 active Not Available Not Available Not Avai lable calcium 600 mg (as carbonate)- vitamin D3 20 mcg (800 unit) tablet Take 1 tablet twice a day by oral route for 30 days. 10/25 completed Not Available Not Available Not Available ID NOW COVID-19 Test Kit TEST DIRECTED TODAY 06/17 completed Not Available Not Available Not Available sotrovimab 500 mg/8 mL (62.5 mg/mL) intravenous solution (EUA) Inject 500 mg as needed by intraveno us route as directed for 1 day. 06/17 completed Not Available Not Available Not Available Paxlovid 300 mg (150 mg x 2)-100 mg tablets in a dose pack TK 2 NIRMATREL VIR TS AND 1 RITONAVIR T TOGETHER PO BID FOR 5 DAYS 07/19 completed Not Available Not Available Not Available Vitals Date Recorded Body height Body mass index (BMI) Body weight Oxygen saturation Oxygen saturation in Arterial blood by Pulse oximetry Heart rate Body temperature Systolic blood pressure Diastolic blood pressure Provider Name and Address Organization Details Last Updated DateTime 3 175.26 cm 31.9 kg/m2 17569.9 5 g 97 % 97 % 81 /min 98.2 [degF] 121 mm[Hg] 84 mm[Hg] Bree Monzon [place] - [facility] 3 14:04:32 Date Recorded Body height Body mass index (BMI) Body weight Oxygen saturation Oxygen saturation in Arterial blood by Pulse oximetry Heart rate Systolic blood pressure Diastolic blood pressure Systolic blood pressure Diastolic blood pressure Provider Name and Address Organization Details Last Updated DateTime 4 175.26 cm 32.5 kg/m2 88499.3 2 g 97 % 97 % 71 /min 146 mm[Hg] 70 mm[Hg] 140 mm[Hg] 72 mm[Hg] Shivani Lundberg [place] - [facility] 4 16:41:38 Date Recorded Body height Body mass index (BMI) Body weight Oxygen saturation Oxygen saturation in Arterial blood by Pulse oximetry Heart rate Respiratory rate Body temperature Systolic blood pressure Diastolic blood pressure Provider Name and Address Organization Details Last Updated DateTime 4 175.26 cm 32.5 kg/m2 61065.3 2 g 99 % 99 % 75 /min 18 /min 97.4 [degF] 132 mm[Hg] 72 mm[Hg] Bree Monzon MA [facility] 4 16:38:00 Date Recorded Body height Body mass index (BMI) Body weight Oxygen saturation Oxygen saturation in Arterial blood by Pulse oximetry Heart rate Systolic blood pressure Diastolic blood pressure Provider Name and Address Organization Details Last Updated DateTime 4 175.26 cm 32.8 kg/m2 606051. 51 g 97 % 97 % 77 /min 118 mm[Hg] 70 mm[Hg] Shivani Lundberg MA [facility] 4 10:04:37 Date Recorded Body height Body mass index (BMI) Body weight Oxygen saturation Oxygen saturation in Arterial blood by Pulse oximetry Heart rate Body temperature Systolic blood pressure Diastolic blood pressure Provider Name and Address Organization Details Last Updated DateTime 5 175.26 cm 32.8 kg/m2 440755. 51 g 98 % 98 % 77 /min 98.1 [degF] 122 mm[Hg] 72 mm[Hg] Bree Monzon MA [facility] 5 15:02:59 Social History Question Answer Notes LastModified by Organizat ion Details LastModified Time Tobacco Smoking Status Current Every Day Smoker Susannah Delcid MA [facility], [facility] 02/19/2015 15:04:10 Do You Have An Advance Directive? Yes Information not available 03/26/2015 What Is Your Level Of Alcohol Consumption? Occasional Information not available 03/26/2015 Is Blood Transfusion Acceptable In An Emergency? Yes Information not available 03/26/2015 What Is Your Level Of Caffeine Consumption? Heavy Information not available 03/26/2015 How Much Tobacco Do You Chew? None Information not available 03/26/2015 Are You Currently Employed? No Information not available 03/26/2015 What Type Of Diet Are You Following? REGULAR Information not available 03/26/2015 Education 2 Year College Informatio n not available 03/26/2015 Live Alone Or With Others? With Others Information not available 03/26/2015 What Was The Date Of Your Most Recent Tobacco Screening? 07/19/2024 Information not available 07/19/2024 How Many Children Do You Have? 2 Information not available 03/26/2015 What Is Your Current Pack Years? 20-29packyears Information not available 12/03/2020 Performs Monthly Self-breast Exam? No Information no t available 03/26/2015 Do You Use Protection During Sex? Always Information not available 03/26/2015 What Is Your Relationship Status? Single Information not available 03/26/2015 Do You Use Your Seat Belt Or Car Seat Routinely? Yes Information not available 12/03/2020 Seat Belts Used Routinely Yes Information not available 03/26/2015 Are You Sexually Active? Yes Information not available 03/26/2015 Do You Have Smoke And Carbon Monoxide Detectors In Your Home? Yes Information not available 12/03/2020 At What Age Did You Start Smoking Tobacco? 13 Information not available 03/26/2015 Are You Passively Exposed To Smoke? Yes Information no t available 12/03/2020 How Much Tobacco Do You Smoke? 1 PPD [email or web address] Information not available 11/25/2018 General Stress Level Medium Information not available 03/26/2015 Do You Use Any Illicit Or Recreational Drugs? No Information not available 12/03/2020 Do You Use Sunscreen Routinely? Yes Information not available 03/26/2015 Has Tobacco Cessation Counseling Been Provided? Yes [email or web address] Information not available 10/25/2020 On What Date Was Tobacco Cessation Counseling Provided? 07/19/2024 Information not available 07/19/2024 How Many Years Have You Smoked Tobacco? 20 Information not available 02/19/2015 Sex: Unknown Functional Status Question Answer Note LastModified by Organizat ion Details LastModified Time What is your exercise level? Occasional Information not available 03/26/2015 Mental Status None recorded. Family History Relationship Description Onset Age of this Age Resolved Age Notes LastModified by Organization Details LastModified Time Father Malignant tumor of prostate [email or web address] Not available 03/26 10:43:35 Maternal Grandfather Diabetes mellitus [email or web address] Not available 03/26 10:43:35 Maternal Grandfather Heart disease [email or web address] Not available 03/26 10:43:35 Maternal Grandmother Malignant tumor of breast [email or web address] Not available 03/26 10:43:35 Medical History Condition Response Other Y Gynecological History Statement/Question Response Abnormal Pap N Date of Last Mammogram 01/22/2021 Flow Moderate Date of LMP 12/22/2023 STIs/STDs N HPV Vaccine N Duration of Flow (days) 5 Age at Menarche 10 Current Control Method Tubal Ligat ion Age at First Child 17 Frequency of Cycle (Q days) 28 Sexually Active? Y Menses Monthly Y Date of Last Pap Smear 01/27/2024 Sexual Problems? N LMP Approximate Desired Control Method Unknown Obstetrics History GPAL:G 2 P 2 0 0 2 Type Value Multiple Births 0 Full Term 2 Induced 0 Spontaneous 0 Premature 0 Living 2 Ectopics 0 Total 2 Immunizations Vaccine Type Date Status Note Provider Nam e and Address Organization Details Recorded Time Influenza, split virus, quadrivalent, preservative 6 completed Not Available [facility] 05/28/2019 02:32:59 Influenza, split virus, quadrivalent, PF 9 completed Not Available [facility] 05/28/2019 02:40:20 Influenza, split virus, quadrivalent, preservative 0 completed Katie Pablo MA [facility], [facility] 04/17/2020 16:14:48 Influenza, split virus, quadrivalent, preservative 3 completed Mary Hou MD Attn: [address]ing[address] [place], [address], [facility] 06/17/2022 17:20:03 Influenza, split virus, quadrivalent, preservative 5 completed Not Available [facility] 05/28/2019 02:32:09 Past Encounters Encounter ID Performer Location Encounter Start Date Encounter Closed Date Diagnosis/Indication Diagnosis SNOMED-CT Code Diagnosis ICD10 Code Diagnosis Note [id number] Shameka العراقي (Adult Med) [address] [place] [id number] 02/19/2015 14:29:28 02/19/2015 16:56:44 Dizziness 489821770 R42 Active or passive immunization 114061766 Z23 Disorder o f vitamin B12 948542668 D51.1 Hyperlipidemia 41514358 E78.5 Vitamin D deficiency 347 77213 E55.9 [id number] Raphael Rod Malcom (DIRECTOR BUSINESS) [address] [place] [address] 03/26/2015 09:41:01 03/26/2015 10:48:44 Family planning surveillance 871971842 Z30.09 TUBALSTERI LIZATION Gynecologi c examination 79661943 Z01.419 Screening for malignant neoplasm of breast 470055479 Z12.39 [id number] Malcom (Adult Med) [address] [place] [address] 07/24/2015 16:02:52 07/24/2015 16:48:26 Nausea and vomiting 69748989 R11.2 father had strictures . Hyperlipidemia 93478493 E78.5 Vitamin D deficiency 347 32802 E55.9 Disorder o f vitamin B12 194184996 D51.1 [id number] ASHLEIGH Riojas (Adult Med) [address] [place] [id number] 08/21/2015 14:54:48 08/21/2015 17:01:20 Disorder of vitamin B12 493687096 D51.1 [id number] SERAFIN Roca (Adult Med) [address] [place] [address] 09/17/2015 11:20:14 09/17/2015 12:42:43 Nausea and vomiting 69398629 R11.2 father had strictures . Tobacco user 327211915 Z 72.0 1 pack per day [id number] ASHLEIGH Higgins (Adult Med) [address] [place] [address] 11/08/2015 10:56:49 11/08/2015 11:12:06 Vitamin B12 deficiency anemia due to malabsorption with proteinuria 401715712 D51.1 [id number] ASHLEIGH Riojas (Adult Med) [address] [place] [id number] 12/06/2015 10:21:37 12/06/2015 10:36:31 Disorder of vitamin B12 609388821 D51.1 [id number] SERAFIN Roca (Adult Med) [address] [place] [address] 12/11/2015 12:24:45 12/11/2015 12:40:10 Migraine 12526938 G43.909 Laceration - injury 3126 14325 T14.8 scalp , jacklyn in place, suture line not healed yet. 12/11/15 [id number] Maria C Nieto Malcom (Adult Med) [address] [place] [id number] 12/21/2015 16:11:15 12/21/2015 17:30:56 Laceration - injury 331730697 T14.8 scalp , jacklyn in place, suture line not healed yet. 12/11/15 [id number] ASHLEIGH Riojas (Adult Med) [address] [place] [id number] 01/07/2016 14:56:04 01/07/2016 16:54:19 Disorder of vitamin B12 445241391 D51.1 [id number] SERAFIN Roca (Adult Med) [address] [place] [id number] 04/17/2016 10:33:44 04/17/2016 13:23:12 Strain of neck muscle 954208044 S16.1XXA Administra tion of influenza vaccine 60360532 Z23 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 811743384 D51.1 [id number] ASHLEIGH Riojas (Adult Med) [address] [place] [id number] 05/22/2016 10:52:29 05/22/2016 14:22:06 Disorder of vitamin B12 109206218 D51.1 [id number] SERAFIN Roca (Adult Med) [address] [place] [id number] 0 06/19/2016 13:51:50 06/19/2016 15:38:49 Injury of right knee 2860087557 0238333 S89.90XA fissured cartilage Acute pharyngitis 053873 003 J02.9 Tobacco user 581741635 Z 72.0 1 pack per day 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 563165317 D51.1 Vitamin D deficiency 347 76552 E55.9 Hyperlipidemia 91947143 E78.5 [id number] ASHLEIGH Riojas (Adult Med) [address] [place] [address] 07/17/2016 14:03:04 07/18/2016 10:07:29 Disorder of vitamin B12 045039531 D51.1 [id number] SERAFIN Roca (Adult Med) [address] [place] [id number] 0 08/18/2016 13:44:53 08/19/2016 10:31:13 Disorder of vitamin B12 595621033 D51.1 Prolapsed cervical intervertebral disc 525779391 M50.20 Strain of neck muscle 36 1990501 S16.1XXA [id number] ASHLEIGH Riojas (Adult Med) [address] [place] [id number] 0 09/18/2016 16:43:03 09/18/2016 17:46:56 Vitamin B12 deficiency anemia due to malabsorption with proteinuria 980161846 D51.1 [id number] SERAFIN Roca (Adult Med) [address] [place] [id number] [id number] 10/20/2016 14:58:00 10/20/2016 17:19:28 Strain of neck muscle 387202096 S16.1XXA Disorder o f vitamin B12 790313649 D51.1 Hyperlipidemia 48523473 E78.5 Tobacco user 757025880 Z 72.0 1 pack per day Requires t etanus and diphtheria vaccination 616608775 Z28.3 Physical examination 588 0005 Z04.9 [id number] SERAFIN Roca (Adult Med) [address] [place] [id number] 0 12/22/2016 14:48:53 12/22/2016 15:19:18 Tobacco user 681789462 Z72.0 1 pack per day Strain of neck muscle 36 5823545 S16.1XXA 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 052273434 D51.1 [id number] Raphael Rod Malcom (DIRECTOR BUSINESS) [address] [place] [address] [id number] 0 01/14/2017 15:28:54 01/15/2017 12:09:17 Gynecologic examination 35291745 Z01.419 Family deja nning surveillance 231051714 Z30.09 TUBALSTERI LIZATION Exposure t o sexually transmissible disorder 694949460 Z20.2 Screening mammography 24 871758 Z12.31 [id number] ASHLEIGH Riojas (Adult Med) [address] [place] [id number] 0 01/20/2017 10:27:12 01/20/2017 12:03:33 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 65224107 D51.1 [id number] SERAFIN Roca (Adult Med) [address] [place] [address] [id number] 0 02/26/2017 14:55:05 03/02/2017 09:08:56 Vitamin D deficiency 69733066 E55.9 Disorder o f vitamin B12 337811057 D51.1 Hyperlipidemia 30689575 E78.5 Tobacco user [id number] Z 72.0 Strain of neck muscle 36 6832639 S16.1XXA [id number] SERAFIN Roca (Adult Med) [address] [place] [address] [phone] 0 10/06/2017 14:02:54 10/06/2017 14:42:11 Prolapsed cervical intervertebral disc 689519984 M50.20 Strain of neck muscle 36 6859556 S16.1XXA Acute bronchitis 0541814 2 J20.9 Disorder o f vitamin B12 012191337 D51.1 Vitamin D deficiency 347 91609 E55.9 Tobacco user 066781022 Z 72.0 Hyperlipidemia 53942961 E78.5 [id number] ASHLEIGH Cooper (Adult Med) [address] [place] [address] 82214-471 0 11/03/2017 12:34:21 11/04/2017 09:07:45 Vitamin B12 deficiency anemia due to malabsorption with proteinuria 578766822 D51.1 [id number] SERAFIN Roca (Adult Med) [address] [place] [address] [phone] 0 01/15/2018 11:29:30 01/15/2018 13:44:03 Vitamin D deficiency 30341725 E55.9 Disorder o f vitamin B12 232739628 D51.1 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 085914323 D51.1 Palpitations 87963127 R0 0.2 Prolapsed cervical intervertebral disc 887700287 M50.20 [id number] SERAFIN Roca (Adult Med) [address] [place] [address] 58265-494 0 02/22/2018 18:02:39 02/23/2018 10:24:42 Acute pharyngitis 617075170 J02.9 exposed to strep (her son) Vitamin D deficiency 347 64292 E55.9 Hyperlipidemia 82410109 E78.5 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 155223213 D51.1 Prolapsed cervical intervertebral disc 342347276 M50.20 Tobacco user 569774305 Z 72.0 Disorder o f vitamin B12 754821647 D51.1 [id number] SERAFIN Roca (Adult Med) [address] [place] [address] [phone] 0 03/29/2018 12:16:47 03/30/2018 15:51:17 Vitamin B12 deficiency anemia due to malabsorption with proteinuria 663759861 D51.1 Acute bronchitis 0755525 2 J20.9 Bradycardia 90360381 R00 .1 Prolapsed cervical intervertebral disc 573649736 M50.20 Tobacco user 624026383 Z 72.0 Vitamin D deficiency 347 50105 E55.9 Disorder o f vitamin B12 662693938 D51.1 Hyperlipidemia 33017544 E78.5 [id number] ASHLEIGH Cooper (Adult Med) [address] [place] [address] [phone] 0 04/29/2018 11:00:37 05/06/2018 09:41:46 Vitamin B12 deficiency anemia due to malabsorption with proteinuria 951913398 D51.1 [id number] ASHLEIGH Riojas (Adult Med) [address] [place] [address] 71005-963 0 06/24/2018 13:45:21 06/25/2018 11:40:43 Vitamin B12 deficiency anemia due to malabsorption with proteinuria 880480361 D51.1 [id number] MD Malcom Roland (Adult Med) [address] [place] [address] [phone] 0 10/25/2018 13:56:19 10/26/2018 09:11:53 Physical examination 8783872 Z04.9 Healthy 37 year old female, physical exam normal, 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 and [employer]- Paperwork filled out and given back to patient- Tetanus vaccine found by my MA and given a copy to patient to keep for her records - Told patient to follow-up with Chance Morgan PA-C for vitamin B12 and routine follow-up [id number] Raphael العراقي (DIRECTOR BUSINESS) [address] [place] [address] 31831-925 0 11/25/2018 15:05:47 11/29/2018 16:02:25 Gynecologic examination 96423112 Z01.419 Exposure t o sexually transmissible disorder 838286515 Z20.2 Screening mammography 24 235730 Z12.31 [id number] SERAFIN Roca (Adult Med) [address] [place] [address] 09071-078 0 03/08/2019 10:45:14 03/08/2019 12:15:02 Injury of right ankle 9203794516 9469381 S99.911D Achalasia 29997649 K22.0 Acute otitis media 71801 03 H66.92 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 737356590 D51.1 Prolapsed cervical intervertebral disc 794849778 M50.20 Tobacco user 024585423 Z 72.0 Hyperlipidemia 18921628 E78.5 Vitamin D deficiency 347 42231 E55.9 [id number] ASHLEIGH Cruz (Adult Med) [address] [place] [address] 33769-849 0 04/08/2019 13:39:38 04/09/2019 20:45:58 Disorder of vitamin B12 994146807 D51.1 Administra tion of influenza vaccine 16193062 Z23 [id number] ASHLEIGH Cruz (Adult Med) [address] [place] [address] [phone] 0 04/17/2020 15:47:42 04/18/2020 12:29:02 Administration of influenza vaccine 86639586 Z23 [id number] SERAFIN Roca (Adult Med) [address] [place] [address] 88934-721 0 09/04/2020 10:25:45 09/05/2020 11:54:20 Dysuria 06187118 R30.9 Hyperlipidemia 29467920 E78.5 Vitamin D deficiency 347 22119 E55.9 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 211105614 D51.1 Tobacco user 300635823 Z 72.0 [id number] SERAFIN Roca (Adult Med) [address] [place] [address] 52511-867 0 10/25/2020 08:30:57 10/25/2020 11:14:31 Urinary incontinence 583686933 R32 Acute bronchitis 2138399 2 J20.9 Vitamin D deficiency 347 78418 E55.9 Disorder o f vitamin B12 049336992 D51.1 Hyperlipidemia 09679610 E78.5 Prolapsed cervical intervertebral disc 722735826 M50.20 [id number] Raphael Rod Malcom (DIRECTOR BUSINESS) [address] [place] [address] 98348-516 0 12/03/2020 11:13:32 12/05/2020 08:09:50 Screening mammography 51782644 Z12.31 Family deja nning surveillance 770992426 Z30.09 TUBAL STERILIZAT ION [id number] SERAFIN Roca (Adult Med) [address] [place] [address] 60642-142 0 12/25/2020 07:48:41 12/25/2020 17:15:46 Hyperlipidemia 49638513 E78.5 Strain of neck muscle 36 5019339 S16.1XXA Tobacco user 018876558 Z 72.0 Acute cont act dermatitis 593406570 L25.9 Disorder o f vitamin B12 305110421 D51.1 Prolapsed cervical intervertebral disc 368054772 M50.20 Vitamin D deficiency 347 79753 E55.9 [id number] SERAFIN Roca (Adult Med) [address] [place] [address] 09246-776 0 02/26/2021 08:06:45 02/26/2021 16:35:36 Tobacco user 311043068 Z72.0 Strain of neck muscle 36 3316358 S16.1XXA Prolapsed cervical intervertebral disc 987062266 M50.20 Disorder o f vitamin B12 921743385 D51.1 Hyperlipidemia 70378269 E78.5 [id number] SERAFIN Roca (Adult Med) [address] [place] [address] 02258-363 0 04/16/2021 15:49:00 04/16/2021 17:30:36 Acute bronchitis 01338446 J20.9 Tobacco user 347775989 Z 72.0 [id number] MD Malcom Koo (Adult Med) [address] [place] [address] [phone] 0 07/16/2021 09:57:49 07/17/2021 06:17:44 COVID-19 296980048 U07.1 Frequent cough, positive covid test on 07-16-2021 , discussed with patient , she agreed with monoclonal antibody at [facility] out patient, hospital has supply, oral med seems having precaution of side effect, so this office chose the parenteral treatment instead of oral treatment. form filled out and faxed to outpatient treatment unit, unit and pharmacy were contacted and discussed with Dr. Hou today 07-16-2021 1017 AM. [id number] SERAFIN Roca (Adult Med) [address] [place] [address] 91861-940 0 10/04/2021 15:13:32 10/08/2021 08:57:52 Labyrinthitis 08003313 H83.03 Serum martina min B12 borderline low 134370356 R79.89 Vitamin D deficiency 347 60443 E55.9 Tobacco user 426925434 Z 72.0 Acute bronchitis 9860585 2 J20.9 Hyperlipidemia 65699691 E78.5 Prolapsed cervical intervertebral disc 020216621 M50.20 [id number] MD Malcom Koo [facility] (Adult Med) [address] [place] [address] 77947-799 0 06/17/2022 14:57:50 07/10/2022 11:56:46 Obesity 901417079 E66.9 BMI is 31.6, diet, exercise and keep the weight down. Administra tion of influenza vaccine 10030046 Z23 She tolerated shot well. Prediabetes 781941279 R7 3.03 Copies of CMP of September and February 2021 provided, blood sugar was 114 MG% then Smoker 36628068 F17.200 Advised to quit smoking, Vitamin D below reference range 076889261 E55.9 [id number] [facility] [address] [place] [address] 75445-704 0 09/16/2022 14:28:24 09/19/2022 15:45:06 Female stress incontinence 42809450 N39.3 Will refer to urologist. Pruritic rash 51882776 L 28.2 Will try abs and topical cream and referral , she agreed. Obesity 122861325 E66.9 BMI is 31.6, diet, exercise and keep the weight down. HIV screening 320132639 Z11.4 She agreed for the screening. [id number] Erma [facility]ueda MD [facility] ([facility] [address] [place] [address] 63501-390 0 11/05/2022 13:30:21 11/10/2022 16:23:41 Screening for malignant neoplasm of breast 135585293 Z12.39 Hyperlipidemia 03052339 E78.5 Will return for fasting lipids Nicotine user 890257723 Z72.0 Patient would like to quit but this is not a good time. Will discuss again at a later date. Herpes simplex 97765939 B00.9 Discussed HSV infection. Told patient it is probably not necessary to take it for prevention since she has not had an outbreak in such a long time. Cyst of vulva 27549664 N 90.7 Lesion consistent with sebaceous cyst. Observe. If changes or develops pain seek medical attention. [id number] Erma Rueda MD [facility] (Adult Med) [address] [place] [address] 59306-097 0 10/14/2023 15:44:03 10/15/2023 11:58:00 Elevated blood-pressure reading without diagnosis of hypertension 411304121 R03.0 Blood pressure elevated today. Would like to work on lifestyle changes. Discussed DASH diet. Encouraged her to eat frequent small meals and work on healthy diet. Discussed limiting salt and regular exercise. Will return for fasting blood work. Achalasia of esophagus 29012302 K22.0 She is going to reach out to the specialist for a follow up. I told her if she needs another referral she should let me know. Acute bronchitis 9288992 2 J20.9 Hyperlipidemia 04862256 E78.5 Last LDL was elevated approximat reid a year ago. Will return for repeat fasting lipid profile. We discussed the additive effect of elevated cholestero l and elevated blood pressure for risk of heart disease. Patient will work on lifestyle changes for three months but if these numbers do not improve will consider medication . Nicotine user 888520932 Z72.0 Patient would like to quit but this is not a good time. Will discuss again at a later date. [id number] MD Malcom Ricketts (Adult Med) [address] [place] [address] [phone] 0 12/22/2023 16:04:30 12/29/2023 12:14:03 Cough 29139044 R05.9 COVID-19 882907737 U07.1 Rest and fluids. Work excuse until fever free off medicine for twenty four hours and symptoms improving. Should wear a mask for a total of ten days. If feels worse or has any respirator y distress seek medical attention. Can take Mucinex. Will send out Paxlovid and advised her to start it today. Advised her to stop Vesicare while taking the Paxlovid due to medication interactio n. [id number] SERAFIN WOOTEN (Adult Med) [address] [place] [address] [phone] 0 01/27/2024 09:55:53 01/29/2024 11:54:18 Depression screening 076632094 Z13.31 PHQ9- {{Negative * Positive Mild Mode rate Sever e}} (0 out of 27) Mental hea lth screening 268602981 Z13.39 GAD7- {{Negative * Positive Mild Mode rate Sever e}} (0 out of 21) Gynecologi c examination 52680140 Z01.419 Nuswab sent to labPap sample taken and sent to lab Obesity 092583853 E66.8 BMI 32.8 [id number] MD Malcom Ricketts (Adult Med) [address] [place] [address] 0 07/19/2024 14:44:50 07/20/2024 09:58:42 Pain in left arm 634800788 M79.602 There is a small nodule appreciate d. Will do an ultrasound for further evaluation . Body mass index 30+ - obesity 644737929 Z68.32 Would like medication to help with weight loss. Has been working on diet but has not done much exercise. Encouraged her to work on an exercise plan. Discussed side effects and risks of GLP-1. Explained risk of pancreatit is and thyroid cancer. Patient does not have these problems in herself or anyone else in her family and would like to try the medication . Will follow up in three months. Repeat lipids at follow up. Abscess of skin and/or subcutaneous tissue 66011936 L02.91 Frequent skin abscesses. Another member of her family gets them as well. Discussed MRSA. No active abscesses at this time. Will have her try chlorhexid ine for one week. Will let me know if gets any more abscesses. Achalasia 59071005 K22.0 Recommende d she return to GI for upper endoscopy. She is not ready to do that now but she will think about it. Advised her to avoid caffeine. Nicotine user 584597605 Z72.0 Patient would like to quit but this is not a good time. Will discuss again at a later date. Health Concerns Section Related Observation LastModified by Organization Detai ls LastModified Time None Recorded Concern Status LastModified by Organization Details LastModified Time None Recorded Advance Directives Directive Y: Payers Encounter Date Sequence Insurance Name Policy Number Policy Kaufman Covered Member ID Kaufman Member ID Guarantor Name 11/05/2022 1 [facility] ON OR AFTER 11/08/20 (MEDICAID REPLACEMENT - HMO) Branden Rosen [id number] Branden Rosen 10/14/2023 1 [facility] ON OR AFTER 11/08/20 (MEDICAID REPLACEMENT - HMO) Branden Rosen [id number] Branden Rosen 12/22/2023 1 [facility] ON OR AFTER 11/08/20 (MEDICAID REPLACEMENT - HMO) Branden Rosen [id number] Branden Silas 01/27/2024 1 [facility] ON OR AFTER 11/08/20 (MEDICAID REPLACEMENT - HMO) Branden Rosen [id number] Branden Silas 07/19/2024 1 [facility] ON OR AFTER 11/08/20 (MEDICAID REPLACEMENT - HMO) Branden Rosen [id number] Branden Rosen Notes Date Note Type Note Provider Name and Address Organization Details Recorded Time 11/05/2022 text/html here for women's health exam, last PAP 2018 and was normal, no concerns or problems, having regular periods, no vaginal discharge or irritation, on the outside of vaginal area there is a raised bump, has been there a year and a half, no change, soft, no drainage, occasional pain if something rubs, no itching, grandmother had breast cancer, no colon cancer, sees a urologist for stress incontinence, getting a test on November 21, had serology done and tested positive for HSV 1, used to get cold sores when younger, has not had one in a very long time, was started on preventative Acyclovir but not sure she needs to take it since it has been so long since she has had any sores, has asthma, smoker, has tried quitting, son bipolar and oppositional defiance so feels like too much stress now to quit, takes ibuprofen as needed for pinched nerve in neck, diabetes and heart disease in family Erma Rueda MD Attn: [address] [place], [address], [facility] 11/05/2022 17:19:48 10/14/2023 text/html establish care visit, may have bronchitis, feels tightening in lungs, has been a couple weeks, had a runny nose for a week, moved down to chest, was taking Mucinex, occasional cough, no history of asthma or COPD, smoker, gets sinus infections frequently, also is experiencing another chest discomfort, feels like something is impaling from inside out front and back, when takes a deep breath out it is worse, coughing, cough is nonproductive, cough syrup and antacid pills both help, has been dealing with this for at least a couple of months, had surgery for achalasia, feels like pressure from burp, hard to burp since achalasia, last had EGD four years ago, they don't want to balloon her open any more because worried about rupture, when checks blood pressure out and about says pre hypertension, grandfather heart disease, no period in two months, Erma Rueda MD Attn: [address] [facility], [place], [address], [facility] 10/14/2023 16:44:35 01/27/2024 text/html 43 y/o , bot h deliveries, F here for well woman exam. Pt denies being sexually active, no history of abnormal paps in the past. TODD REEVES PA-C Attn: [address] [facility], [place], [address], [facility] 01/27/2024 10:16:19 07/19/2024 text/html follow up, recently had a knot on inside of left arm, saw a bruise there about a month ago, knot had resolved, feeling sharp pains going up and down arm, when was holding something left wrist went weak, arm feels weak and sometimes can't lift anything, comes and goes, on occasion wake up coughing, drainage with foamy bubbles, heartburn, once a month, symptoms have been steady for the last year and a half, has achalasia and had surgery and had balloon treatments to open it, last balloon treatment was a long time ago, last night had burning ball feeling that woke her, took a couple sips of soda, smoking, quit for a month in the past, lung and prostate cancer, Erma Rueda MD Attn: [address] [place], [address], [facility] 07/19/2024 15:58:27 OBGyn Episode Ob Episode Information Episode Created Date Number of Fetuses Patient Bloodtype Patient rh Status Prepregnancy Weight lbs Domestic Partner Domestic Partner Phone Father Name [employer] Sealer Status 03/26/20 15 1 CLOSED Fetus Data First Name Last Name Admitted to NICU Weight (g) Sex Living Outcome Pediatric Complications Fetus ID Race Codes Race Delivery Type 3543.68 75 M Full Term [id number] Only Leonidas Calculation Initial Leonidas Date Initial Exam Date Initial Exam Provider Initial Ultrasound Date Last Menstrual Period Date Ultra Sound Weeks Gestation 0 Eighteen To Twenty Week Leonidas Update Ultra Sound Date Fundal Height At Umbil Quickening Date Ultra Sound Latest Weeks Gestation Final Leonidsa Confirmed By Final Leonidas Confirmed Date Final Leonidas Date Ultra Sound Latest Days Gestation 0 0 Menstrual History Last Menstrual Date Menses Monthly On Bcp Conception Prior Menses Frequency Hcg Plus Date Menarche Onset Age Delivery Information Delivery Date Delivery Type Labor Anesthesia Weeks Gestation Incision Type Labor Labor Length Hrs Delivered By Post Complications Tubal Sterilization Discharge Date Comments 4 Regional-Sp inal 38 false 0 Delivere d at [facility] Discharge Information Feeding Method Contraceptive Method Maternal HG B and HCT Levels Ob Episode Information Episode Created Date Number of Fetuses Patient Bloodtype Patient rh Status Prepregnancy Weight lbs Domestic Partner Domestic Partner Phone Father Name [employer] Sealer Status 03/26/20 15 1 CLOSED Fetus Data First Name Last Name Admitted to NICU Weight (g) Sex Living Outcome Pediatric Complications Fetus ID Race Codes Race Delivery Type 2778.25 1 F Full Term [id number] Only Leonidas Calculation Initial Leonidas Date Initial Exam Date Initial Exam Provider Initial Ultrasound Date Last Menstrual Period Date Ultra Sound Weeks Gestation 0 Eighteen To Twenty Week Leonidas Update Ultra Sound Date Fundal Height At Umbil Quickening Date Ultra Sound Latest Weeks Gestation Final Leonidas Confirmed By Final Leonidas Confirmed Date Final Leonidas Date Ultra Sound Latest Days Gestation 0 0 Menstrual History Last Menstrual Date Menses Monthly On Bcp Conception Prior Menses Frequency Hcg Plus Date Menarche Onset Age Delivery Information Delivery Date Delivery Type Labor Anesthesia Weeks Gestation Incision Type Labor Labor Length Hrs Delivered By Post Complications Tubal Sterilization Discharge Date Comments 9 Regional-Sp inal 39 false 5 Delivere d at [facility] Discharge Information Feeding Method Contraceptive Method Maternal HG B and HCT Levels
--- OUTSIDE RECORDS SUMMARY | 2024-08-04 16:09 | XMS_ITS | Clinical Summary ---
Author Organization [facility] Address [address] [place] [address] Care Team Providers Care Installers Mechanical Name Role Phone Erma Rueda MD Primary Care Provider [phone] Allergies Active Allergy Reactions Criticality Noted Date [...] Urinary incontinence without sensory awareness 0 11/20/2022 Surgical History Surgery Date Site/Laterality Comments OTHER SURGICAL HISTORY 2014 Syncope: Medical Management Medical History Medical History Date Comments Hx Other Medical Syncope Wears glasses Achalasia of digestive tract Family History Medical History Relation Name Comments Prostate cancer Father Cancer, pros morgan; Cause of : Cancer, prostate COPD Mother COPD; Relation Name Status Comments Father Mother Social History Tobacco Use Types Packs/Day Years Used Date Smoking Tobacco: Every Day Cigarettes 0.5 33.2 Started: 1991 Tobacco Cessation:Ready to Q uit: Not Asked; Counseling Given: Not Answered Comments No Sex and Gender Information Value Date Recorded Sex Assigned at Not on file Legal Sex Female 8:07 PM OFFICE HELPER Gender Identity Not on file Sexual Orientation Not on file Obstetrics History Last Filed Vital Signs Vital Sign Reading Time Taken Comments Blood Pressure 136/75 04/18/2021 10:03 AM OFFICE HELPER Pulse 68 04/18/2021 10:03 AM OFFICE HELPER Temperature 36.7 C (98 F) 04/18/2021 10:03 AM OFFICE HELPER Respiratory Rate 16 04/18/2021 10:03 AM OFFICE HELPER Oxygen Saturation 97% 04/18/2021 10:03 AM OFFICE HELPER Inhaled Oxygen Concentration - - Weight 95.7 kg (211 lb) 04/18/2021 10:03 AM OFFICE HELPER Height 175.3 cm (5' 9 ) 04/18/2021 10:03 AM OFFICE HELPER Body Mass Index 31.16 04/18/2021 10:03 AM OFFICE HELPER Plan of Treatment Health Maintenance Due Date Last Done Comments Cervical Cancer Screening 1978 Colon Cancer Screening-Colonoscopy 1978 Depression Screening 1978 Hepatitis C Screening 1978 Hepatitis B Screening 1996 Regular Well Visit/Exam 18-64 1996 Pneumococcal vaccine <65 (1 of 2 - PCV) 1997 Breast Cancer Screening-Mammogram 01/22/2022 01/22/2021, 07/28/2019, 01/21/2017 Influenza Vaccine (#1) 2024 3, 04/17/2020, 04/08/2019, Additional history exists DTaP/Tdap/Td Vaccine (2 - Td or Tdap) 10/20/2026 10/20/2016 HPV Vaccines Aged Out No longer eligi ble based on patient's age to complete this topic Goals Goal Patient Goal Type Associated Problems Recent Progress Patient-Stated? Author CCM Chronic Pain Care Plan Chronic Care Management No change(04/18 10:04 AM OFFICE HELPER) No Emelia Sykes, MANDIE Note: Problem: Chronic Pain Goals: 1. Minimize further functional decline 2. Maximize quality of life 3. Control pain Strategies: - Activity/exercise program recommendation - Conservative stepwise pain medicine strategy with multi-disciplinary approach - Recommend healthy lifestyle strategies and compensatory methods as needed Insurance [facility] Care Teams Installers Mechanical Relationship Specialty Start Date End Date Erma Rueda MD [address] [place] [address] PCP - General Emergency Medicine 07/30/23
--- OUTSIDE RECORDS SUMMARY | 2024-08-04 16:09 | XMS_ITS | Encounter Summary ---
Author Organization [facility] Health Address [address] [place] [address] Care Team Providers Care Drum Operator Name Role Phone EddieChance Oli LAMINA SEARCHER-CAN CLOSING MACHINE TENDER Primary Care Provider Reason for Visit * Reason Onset Date Comments Appointment 05/26/2019 Encounter Details Date Type Department Care Team (Late st Contact Info) Description 05/26/2019 Telephone [facility] [id number] [place] [address] Susan Zarate Appointment Social History Tobacco Use Types Packs/Day Years Used Date Smoking Tobacco: Every Day Cigarettes 0.5 20 Smokeless Tobacco: Never Alcohol Use Standard Drinks/Week Comments Yes 0 [...] on file Sexual Orientation Not on file documented as of this encounter Functional Status Functional Status Response Date of Assess ment Is person deaf or have serious hearing difficult y? No 08/21/2016 Is person blind or have serious difficulty seein g? No 08/21/2016 Does person have serious dif ficulty walking/climbing stairs? No 08/21/2016 Does person have difficulty dressing/bathing? No 08/21/2016 Does person have difficulty doing errands alone? No 08/21/2016 Cognitive Status Response Date of Assessm ent Does person have difficulty concentrating/remembering/making decisions? No 08/21/2016 documented as of this encounter Miscellaneous Notes * Telephone Encounter - Susan Zarate - 05/26/2019 2:42 PM CST 1st attempt to contact patient no answer vm was left. S SUPPORT ADVISOR documented in this encounter Plan of Treatment Not on file documented as of this encounter Goals Goal Patient Goal Type Associated Problems Recent Progress Patient-Stated? Author Safety General On track( 10:37 AM CDT) No Nancy Ortiz, MANDIE Note: Expected end date: Ongoing Interventions: Your nurse will assess your risk for falls/injury each visit Use appropriate and safe transfer methods Medication Management General On track( 10:37 AM CDT) No Nancy Ortiz RN Note: Expected end date: Ongoing Interventions: Take all medications as prescribed Let your doctor know right away about any changes in your medications documented as of this encounter Visit Diagnoses Not on filedocumented in this encounter Care Teams Drum Operator Relationship Specialty Start Date End Date Chance Morgan, RASHAUN-CAN CLOSING MACHINE TENDER PCP - General 09/28/17 documented as of this encounter
--- OUTSIDE RECORDS SUMMARY | 2024-08-04 16:09 | XMS_ITS | CONTINUITY OF CARE DOCUMENT ---
Author Name stefany mccall Address Unknown Organization [facility] Address [address] [place] [address] Phone [phone] Care Team Providers Care Railroad Surveyor Name Role Phone Ham Mai MD Unavailable NATTY MELCHOR Unavailable [phone] NATTY MELCHOR Unavailable PROBLEMS Condition Status Date Provider Notes Palpitations active Ham Mai MD Chest pain active Ham Mai MD Family History of Hypertension: active ? Guillermina Mai MD ENCOUNTERS Date Type Provider Location Encounter Diag nosis - In-person encounter Office Visit Ham Mai MD [place] [facility] - In-person encounter Office Visit Ham Mai MD [place] [facility] Family History of Hypertension:Chest painPalpitations VITAL SIGNS Date Observation Value Provider Body Mass Index (Ratio) 26.76 kg/m2 Guillermina Mai MD blood pressure, diastolic 88 mm[Hg] Da gilberto Arsen blood pressure, systolic 142 mm[Hg] Dac ia Arsen oxygen saturation, oximetry 97 % Whitney Arsen respiratory rate E&M 16 /min Whitney V oss pulse rate 65 /min Whitney Arsen weight E&M 176 [lb_av] Whitney Arsen height E&M 68 [in_i] Whitney Arsen blood pressure, diastolic 74 mm[Hg] Cy magdy Bradford blood pressure, systolic 118 mm[Hg] Avelina jeffy Sanchez Body Mass Index (Ratio) 27.31 kg/m2 Guillermina Mai MD blood pressure, resting No Yael Rivas blood pressure, diastolic 74 mm[Hg] Areli Rivas blood pressure, systolic 106 mm[Hg] Ashly Rivas oxygen saturation, oximetry 96 % Deon Rivas respiratory rate E&M 18 /min Jeff Rivas pulse rate 65 /min Deon massey weight E&M 179.6 [lb_av] Deon cartagena height E&M 68 [in_i] Deon massey ALLERGIES No Known Drug Allergies RESULTS Date Observation Value Provider Reference Range Interpretation Location 9 alanine aminotransferase (SGPT), serum 10 1/L [facility] 0-32 9 aspartate aminotransferase (SGOT), serum 9 1/L [facility] 0-40 9 alkaline phosphatase, serum 77 1/L [facility] 39-117 9 bilirubin, serum, total 0.3 mg/dL [facility] 0.0-1.2 9 albumin/globulin ratio, serum 2.0 [facility] 1.2-2.2 9 globulin, serum 2.2 [facility] 1.5-4.5 9 albumin, serum 4.5 g/dL [facility] 3.5-5.5 9 protein, total, serum 6.7 g/dL [facility] 6.0-8.5 9 calcium, serum 8.8 mg/dL [facility] 8.7-10.2 9 carbon dioxide, venous blood 20 mmol/L [facility] 20-29 9 chloride, serum 105 mmol/L [facility] 96-106 9 potassium, serum 4.2 mmol/L [facility] 3.5-5.2 9 sodium, serum 141 mmol/L [facility] 107-413 8577/09/2 9 urea nitrogen/creatinine ratio, serum 10 [facility] 9-23 9 eGFR if 107 mL/min/{1 .73_m2} [facility] >59 9 eGFR if not 93 mL/min/{1 .73_m2} [facility] >59 9 creatinine, serum 0.80 mg/dL [facility] 0.57-1.00 9 urea nitrogen, blood 8 mg/dL [facility] 6-20 9 blood glucose, random 68 mg/dL [facility] 65-99 9 magnesium, serum 2.2 mg/dL [facility] 1.6-2.3 9 free thyroxine index 2.8 [facility] 1.2-4.9 9 triiodothyronine resin uptake 27 % [facility] 24-39 9 thyroxine, serum, total 10.5 ug/dL [facility] 4.5-12.0 HISTORY OF MEDICATION USE Medication Status Instructions Dates Provider Indications Com ments IBUPROFEN CAPSULE active as needed Jeff Rivas CALCIUM + D3 600-200 MG-UNIT ORAL TABLET active ONE TAB BY MOUTH DAILY Deon Rivas MULTIVITAMINS ORAL CAPSULE active ONE TAB. DAILY Deon Rivas SOCIAL HISTORY Date Observation Value Provider social history E&M S moking History: Vikki hawthorne currently smokes every day. Vikki hawthorne has been counseled to quit. Ham Mai MD social history reviewed E&M revi ewed - no changes required Ham Mai MD smoking/tobacco cess ation, patient education and counseling yes Whitney Leger number of years as a smoker 25 a Whitney Leger smoking history, tot al pack/day 0.25 Whitney Leger cigarette use yes Whitney Leger smoking status Current every day smoker D glynn Leger smoking status Current every day smoker C carlos Bradford smoking/tobacco cess ation, patient education and counseling yes Ham Mai MD social history E&M S moking History: P atjas currently smokes every day. P atjas has been counseled to quit. Ham Mai MD social history reviewed E&M revi ewed - no changes required Ham Mai MD number of grandchildren Ham Mai MD U kylie Mai MD number of years as a smoker 25 a Deon Rivas smoking history, tot al pack/day 0.25 Deon Rivas cigarette use yes Deon Terence mizti smoking status Current every day smoker M doritaPatience Rivas FUNCTIONAL STATUS Date Observation Value Provider periodic limb movement index absent (0) Ming Salgado MD FAMILY HISTORY Family Member Condition Mother Family History of Co ronary Artery Disease: Mother Family History of Hy pertension: Mother Family History of Co ronary Artery Disease: INSURANCE PROVIDERS Payer name Policy type / Coverage type [place] [employer] party ID [id number] MEDICAID (2) Medicaid [id number] ADVANCE DIRECTIVES Name Date DISCUSSED - NO DECISION MADE TREATMENT PLAN Date Name Performer Cardiology follow up :Palps and chest pain still occur on occasion but all testing has come back without abnormalities. Ham Mai MD Date Name MAGNESIUM THYROID PANEL WITH T SH, 3RD GENERATION COMPREHENSIVE METABO LIC PANEL, W/EGFR STR - Routine Complete Echo Mobile [facility] Tele HISTORY OF PROCEDURES Procedure Date Procedure Name Provider Procedure Notes S tatus Stress EKG Ming Salgado MD completed Event Monitor Ham Mai MD comple duarte EKG Ham Mai MD completed
== END 2024-08-04 15:08 | disposition home or self-care (01) ==
PROVIDERS: PCP Emergency Medicine; Visit Provider Emergency Medicine
DX: M79.89 Other specified soft tissue disorders (principal)
CPT/HCPCS: 93971